=== PATIENT | male | born 1940 | race African-American/Black ===

== ENCOUNTER 2017-12-28 04:56 | Outpatient (CLI) | payer MEDICARE, BC | END 2017-12-28 04:57 | disposition critical access hospital (66) | LOC: EMS 04:56 | PROVIDERS: ATTEND Surgery | DX: R07.9 Chest pain, unspecified (principal) | CPT/HCPCS: A0425; A0427 ==

== ENCOUNTER 2017-12-28 05:11 | Emergency (ER) | payer MEDICARE, BC ==
[2017-12-28 05:43] LABS: BASOPHILS % (AUTO) 1.2 %; EOSINOPHILS # (AUTO) 0.5 10^3/uL (0.0-0.7); EOSINOPHILS % (AUTO) 11.8 %; HGB - HEMOGLOBIN 14.9 g/dL (14.0-18.0); LYMPHOCYTES # (AUTO) 1.1 10^3/uL (1.5-3.5); LYMPHOCYTES % (AUTO) 26.7 %; MEAN CORPUSCULAR HEMOGLOBIN 30.7 pg (27.0-31.0); MEAN CORPUSCULAR HGB CONC 32.2 g/dL (32.0-36.0); MEAN CORPUSCULAR VOLUME 95.2 fL (80.0-94.0); MEAN PLATELET VOLUME 9.1 fL (7.4-11.4); MONOCYTES # (AUTO) 0.5 10^3/uL (0.0-1.0); NEUTROPHILS # (AUTO) 2.1 10^3/uL (1.5-6.6); NEUTROPHILS % (AUTO) 49.3 %; PLT - PLATELET COUNT 142 10^3/uL (130-450); RED BLOOD COUNT 4.84 10^6/uL (4.70-6.10); RED CELL DISTRIBUTION WIDTH 13.5 % (12.0-15.0); WHITE BLOOD COUNT 4.3 x10^3/uL (4.8-10.8)
[2017-12-28 05:54] LABS: ALBUMIN/GLOBULIN RATIO 1.3 (1.0-2.2); BILIRUBIN,TOTAL 0.5 mg/dL (0.2-1.0); CALCIUM 8.4 mg/dL (8.5-10.3); CREATININE 0.9 mg/dL (0.6-1.2); TOTAL PROTEIN 7.1 g/dL (6.7-8.2)
--- NOTE | 2017-12-28 05:57 | ED Physician Documentation ---
PD HPI CHEST PAIN - Stated complaint Stated Complaint: CHEST PAIN - Chief complaint Chief Complaint: Cardiac - History obtained from History obtained from: Patient - History of Present Illness Timing - onset: Enter time (04:00) Timing - onset during: Rest Timing - details: Abrupt onset Quality: Pain Location: Substernal, Left shoulder/arm, Upper back Improved by: Nothing Worsened by: Other (no exacerbating factors) Associated symptoms: No: Shortness of air, Diaphoresis, Nausea, Vomiting Similar symptoms before: Has not had sx before Recently seen: Not recently seen - Additional information Additional information: c/o midline chest pain radiating to back and left shoulder, onset while lying in bed at rest at [address] 1-2 months ago which was suggestive of previous heart attack but no acutely concerning findings. CP resolved prior to my evaluation Review of Systems Constitutional: denies: Fever, Chills, Sweats Cardiac: reports: Chest pain / pressure. denies: Palpitations, Pedal edema, Calf pain Respiratory: reports: Reviewed and negative GI: reports: Reviewed and negative Musculoskeletal: denies: Extremity swelling PD PAST MEDICAL HISTORY - Past Medical History Past Medical History: Yes Cardiovascular: Hypertension Respiratory: None Endocrine/Autoimmune: None, Type 2 diabetes GI: None : None HEENT: None Psych: None Musculoskeletal: Osteoarthritis Derm: None - Past Surgical History Past Surgical History: Yes Ortho: Arthroscopic surgery - Present Medications Home Medications: Ambulatory Orders Medication Instructions Recorded Confirmed Albuterol [Albuterol] 12/28/17 Losartan Potassium [Losartan 12/28/17 Potassium] Metoprolol Succinate [Toprol Xl] 1 tab PO DAILY 12/28/17 12/28/17 Tiotropium [place] [Spiriva] 12/28/17 - Allergies Allergies/Adverse Reactions: Allergies Allergy/AdvReac Type Severity Reaction Status Date / Time No Known Drug Allergies Allergy Verified 12/28/17 05:18 - Social History Does the pt smoke?: No Smoking Status: Never smoker Does the pt drink ETOH?: No Does the pt have substance abuse?: No - Immunizations Immunizations are current?: No Immunizations: TDAP >10years/unknown - POLST Patient has POLST: Yes PD ED PE NORMAL - Vitals Vital signs reviewed: Yes - General General: Alert and oriented X 3, No acute distress, Well developed/nourished - HEENT HEENT: Moist mucous membranes - Neck Neck: Supple, no meningeal sign - Cardiac Cardiac: RRR, No murmur - Respiratory Respiratory: No respiratory distress, Clear bilaterally - Abdomen Abdomen: Soft, Non tender - Derm Derm: Normal color, Warm and dry - Extremities Extremities: No edema Results - Vitals Vitals: Oxygen O2 Source Room air - EKG (time done) No standard instances Rate: Rate (enter#) (64) Rhythm: NSR [place]: LAD, Anterior hemiblock Intervals: Normal [place] QRS: LVH Ischemia: Normal ST segments, Other (PVC) - Labs Labs: Laboratory Tests 12/28/17 12/28/17 12/28/17 05:34 05:34 05:34 WBC 4.3 L RBC 4.84 Hgb 14.9 Hct 46.1 MCV 95.2 H MCH 30.7 MCHC 32.2 RDW 13.5 Plt Count 142 MPV 9.1 Neut # 2.1 Lymph # 1.1 L [place] # 0.5 Eos # 0.5 Baso # 0.0 Absolute Nucleated RBC 0.01 Nucleated RBC % 0.1 Sodium 139 Potassium 3.6 Chloride 103 Carbon Dioxide 29 Anion Gap 7.0 BUN 21 H Creatinine 0.9 Estimated GFR (MDRD) 99 Glucose 124 H Calcium 8.4 L Total Bilirubin 0.5 AST 26 ALT 21 Alkaline Phosphatase 58 Troponin I < 0.04 Total Protein 7.1 Albumin 4.0 Globulin 3.1 Albumin/Globulin Ratio 1.3 Lipase 67 H Urine Color Urine Clarity Urine pH Ur Specific [place] Urine Protein Urine Glucose (UA) Urine Ketones Urine Occult Blood Urine Nitrite Urine Bilirubin Urine Urobilinogen Ur Leukocyte Esterase Ur Microscopic Review Urine Culture Comments 12/28/17 06:35 WBC RBC Hgb Hct MCV MCH MCHC RDW Plt Count MPV Neut # Lymph # Dent # Eos # Baso # Absolute Nucleated RBC Nucleated RBC % Sodium Potassium Chloride Carbon Dioxide Anion Gap BUN Creatinine Estimated GFR (MDRD) Glucose Calcium Total Bilirubin AST ALT Alkaline Phosphatase Troponin I Total Protein Albumin Globulin Albumin/Globulin Ratio Lipase Urine Color COLORLESS Urine Clarity CLEAR Urine pH 7.0 Ur Specific [place] <=1.005 Urine Protein NEGATIVE Urine Glucose (UA) NEGATIVE Urine Ketones NEGATIVE Urine Occult Blood NEGATIVE Urine Nitrite NEGATIVE Urine Bilirubin NEGATIVE Urine Urobilinogen 0.2 (NORMAL) Ur Leukocyte Esterase NEGATIVE Ur Microscopic Review NOT INDICATED Urine Culture Comments NOT INDICATED - Rads (name of study) chest xray Radiology: Prelim report reviewed, See rad report PD MEDICAL DECISION MAKING - ED course Complexity details: reviewed results, re-evaluated patient, considered differential, d/w patient Departure - Departure Disposition: 01 Home, Self Care Clinical Impression: Chest pain Condition: Good Instructions: ED Chest Pain Atypical Unkn Cause Follow-Up: Alyssa Garay MD [Primary Care Provider] - Discharge Date/Time: 12/28/17 08:46
--- NOTE | 2017-12-28 06:21 | XRAY Report ---
EXAM: CHEST RADIOGRAPHY EXAM DATE: 12/28/2017 06:01 AM. CLINICAL HISTORY: Chest pain. COMPARISON: 07/20/2012, 09/09/2010 TECHNIQUE: 2 views. FINDINGS: Lungs/Pleura: No focal opacities evident. No pleural effusion. No pneumothorax. Normal volumes. Mediastinum: Heart and mediastinal contours are unremarkable. Other: Bilateral hemidiaphragm eventration is noted. IMPRESSION: Stable appearance of the chest without acute cardiopulmonary abnormality. [facility] Referring Provider Line: [phone] SITE ID: [id number]
--- NOTE | 2017-12-28 06:21 | XRAY Preliminary Report ---
Exam: XR CHEST 2 VIEW X-RAY IMPRESSION: Stable appearance of the chest without acute cardiopulmonary abnormality. [facility] SITE ID: [id number]
[2017-12-28 06:44] LABS: BILIRUBIN,URINE NEGATIVE (NEGATIVE); GLUCOSE, URINE (UA) NEGATIVE (NEGATIVE); KETONES,URINE (UA) NEGATIVE (NEGATIVE); LEUKOCYTE ESTERASE, URINE NEGATIVE (NEGATIVE); NITRITE,URINE NEGATIVE (NEGATIVE); OCCULT BLOOD,URINE NEGATIVE (NEGATIVE); PROTEIN,URINE NEGATIVE (NEGATIVE); UROBILINOGEN,URINE 0.2 (NORMAL) E.U./dL (NORMAL)
[2017-12-28 06:53] LABS: CLARITY,URINE CLEAR (CLEAR)
[2017-12-28 08:46] VITALS: BP 167/81
== END 2017-12-28 08:46 | disposition home or self-care (01) ==
LOC: EDUNIT# → ED 05:11 → SUPCPDRO 05:11 → ED 08:46
DX: R07.9 Chest pain, unspecified (principal); E11.9 Type 2 diabetes mellitus without complications; I10 Essential (primary) hypertension
CPT/HCPCS: 36415; 71046; 80053; 81001; 81003; 83690; 84484; 85025; 87086; 93005; 99283; 99284

== ENCOUNTER 2018-04-19 03:21 | Observation (INO) | payer MEDICARE, BC ==
--- NOTE | 2018-04-19 03:41 | ED Physician Documentation ---
PD HPI CHEST PAIN - Stated complaint Stated Complaint: CHEST PRESSURE - Chief complaint Chief Complaint: Cardiac - History obtained from History obtained from: Patient - History of Present Illness Timing - onset during: Rest Timing - details: Gradual onset, Still present Quality: Pressure, Aching Location: Substernal, Left chest Radiation: Back Similar symptoms before: Work up / diagnostics Recently seen: Not recently seen - Additional information Additional information: Patient is a 77 year old male who is presenting to the emergency department for chest pain. patient states that he was sleeping and he woke up. He noticed a pain that started at the back of his chest and radiated to the front of his chest. patient took his blood pressure and it was elevated. patient waited to see if it would improve but it did not so he called ems. when he was evaluated he had no acute distress but he wanted to be seen so he came in pov. Review of Systems Ten Systems: 10 systems reviewed and negative Constitutional: denies: Fever, Chills PD PAST MEDICAL HISTORY - Past Medical History Cardiovascular: Hypertension Respiratory: None Endocrine/Autoimmune: None, Type 2 diabetes GI: None : None HEENT: None Psych: None Musculoskeletal: Osteoarthritis Derm: None - Past Surgical History Past Surgical History: Yes Ortho: Arthroscopic surgery - Present Medications Home Medications: Ambulatory Orders Medication Instructions Recorded Confirmed Albuterol 12/28/17 Losartan Potassium 12/28/17 Metoprolol Succinate [Toprol Xl] 1 tab PO DAILY 12/28/17 12/28/17 Tiotropium [place] [Spiriva] 12/28/17 - Allergies Allergies/Adverse Reactions: Allergies Allergy/AdvReac Type Severity Reaction Status Date / Time No Known Drug Allergies Allergy Verified 04/19/18 03:35 - Social History Does the pt smoke?: No Smoking Status: Never smoker Does the pt drink ETOH?: No Does the pt have substance abuse?: No - Immunizations Immunizations are current?: No Immunizations: TDAP >10years/unknown - POLST Patient has POLST: Yes PD ED PE NORMAL - Vitals Vital signs reviewed: Yes - General General: Alert and oriented X 3, No acute distress - HEENT HEENT: Atraumatic, PERRL - Neck Neck: Supple, no meningeal sign, No JVD - Cardiac Cardiac: No murmur - Respiratory Respiratory: No respiratory distress - Abdomen Abdomen: Soft - Derm Derm: Normal color, Warm and dry, No rash - Extremities Extremities: No deformity - Neuro Neuro: Alert and oriented X 3, No motor deficit, Normal speech Eye Opening: Spontaneous Results - Vitals Vitals: Vital Signs - 24 hr 04/19/18 04/19/18 04/19/18 03:24 03:55 04:33 Temperature 36.6 C Heart Rate 59 L 58 L 45 L Respiratory 16 16 18 Rate Blood Pressure 203/94 H 174/81 H 151/88 H O2 Saturation 97 98 97 Oxygen O2 Source Room air - EKG (time done) 0335 Rate: Rate (enter#) (50) Rhythm: Sinus bradycardia [place]: Normal, Anterior hemiblock QRS: LVH Compare to prior EKG: Unchanged from prior EKG 0526 Rate: Rate (enter#) (45) Rhythm: Sinus bradycardia QRS: LVH, Poor R wave progression Ischemia: T wave inversion Other comments: Other comments (new t wave inversions) Compare to prior EKG: Changed from prior EKG 0538 Rate: Rate (enter#) (45) Rhythm: Sinus bradycardia Compare to prior EKG: Unchanged from prior EKG - Labs Labs: Laboratory Tests 04/19/18 04/19/18 04/19/18 03:39 03:39 03:39 WBC 3.3 L RBC 4.84 Hgb 15.6 Hct 46.1 MCV 95.2 H MCH 32.3 H MCHC 33.9 RDW 12.8 Plt Count 120 L MPV 9.6 Neut # (Auto) 1.5 Lymph # (Auto) 0.[address] [place] # (Auto) 0.3 Eos # (Auto) 0.6 Baso # (Auto) 0.1 Absolute Nucleated RBC 0.00 Nucleated RBC % 0.1 Sodium 138 Potassium 3.4 L Chloride 100 L Carbon Dioxide 29 Anion Gap 9.0 BUN 13 Creatinine 1.0 Estimated GFR (MDRD) 88 L Glucose 117 H Calcium 8.9 Total Bilirubin 0.7 AST 26 ALT 19 Alkaline Phosphatase 55 Troponin I < 0.04 Total Protein 7.6 Albumin 4.1 Globulin 3.5 Albumin/Globulin Ratio 1.2 Lipase 77 H 04/19/18 05:15 WBC RBC Hgb Hct MCV MCH MCHC RDW Plt Count MPV Neut # (Auto) Lymph # (Auto) [place] # (Auto) Eos # (Auto) Baso # (Auto) Absolute Nucleated RBC Nucleated RBC % Sodium Potassium Chloride Carbon Dioxide Anion Gap BUN Creatinine Estimated GFR (MDRD) Glucose Calcium Total Bilirubin AST ALT Alkaline Phosphatase Troponin I < 0.04 Total Protein Albumin Globulin Albumin/Globulin Ratio Lipase - Rads (name of study) chest x-ray Radiology: Final report received (no acute abdnormalities) PD MEDICAL DECISION MAKING - ED course Complexity details: reviewed old records, reviewed results, re-evaluated patient, considered differential, d/w patient ED course: Patient was seen and examined at bedside. ekg was performed and showed no acute abnormalities. IV access was gained and labs were drawn. patient was treated with aspirin 325mg. chest x-ray was performed and was within normal limits. patient was virtually chest pain free. At two hours repeat trop and ekg were performed and the ekg now had new t wave inversions. the leads had never been taken off the patient. an immediate repeat was performed and it was indeed changed. case was discussed with the hospitalist and patient was placed in observation for further care. - Sepsis Event Vital Signs: Vital Signs - 24 hr 04/19/18 04/19/18 04/19/18 03:24 03:55 04:33 Temperature 36.6 C Heart Rate 59 L 58 L 45 L Respiratory 16 16 18 Rate Blood Pressure 203/94 H 174/81 H 151/88 H O2 Saturation 97 98 97 Oxygen O2 Source Room air Departure - Departure Disposition: ED Place in Observation Clinical Impression: Chest pain, Acute electrocardiogram changes Condition: Stable
[2018-04-19] MEDS ORDERED: ASPIRIN CHEW 81 MG TABLET PO STA (03:42)
[2018-04-19 03:51] LABS: BASOPHILS # (AUTO) 0.1 10^3/uL (0.0-0.1); BASOPHILS % (AUTO) 2.9 %; EOSINOPHILS # (AUTO) 0.6 10^3/uL (0.0-0.7); EOSINOPHILS % (AUTO) 18.6 %; HGB - HEMOGLOBIN 15.6 g/dL (14.0-18.0); LYMPHOCYTES # (AUTO) 0.8 10^3/uL (1.5-3.5); LYMPHOCYTES % (AUTO) 25.2 %; MEAN CORPUSCULAR HEMOGLOBIN 32.3 pg (27.0-31.0); MEAN CORPUSCULAR HGB CONC 33.9 g/dL (32.0-36.0); MEAN CORPUSCULAR VOLUME 95.2 fL (80.0-94.0); MEAN PLATELET VOLUME 9.6 fL (7.4-11.4); MONOCYTES # (AUTO) 0.3 10^3/uL (0.0-1.0); MONOCYTES % (AUTO) 8.7 %; NEUTROPHILS # (AUTO) 1.5 10^3/uL (1.5-6.6); NEUTROPHILS % (AUTO) 44.6 %; PLT - PLATELET COUNT 120 10^3/uL (130-450); RED BLOOD COUNT 4.84 10^6/uL (4.70-6.10); RED CELL DISTRIBUTION WIDTH 12.8 % (12.0-15.0); WHITE BLOOD COUNT 3.3 x10^3/uL (4.8-10.8)
--- NOTE | 2018-04-19 04:02 | XRAY Report ---
Reason: chest pain Procedure Date: 04/19/2018 Accession Number: [id number] / [id number] Procedure: XR - Chest 1 View X-Ray CPT Code: 44749 FULL RESULT: EXAM: CHEST RADIOGRAPHY EXAM DATE: 04/19/2018 03:54 AM. CLINICAL HISTORY: Chest pain. COMPARISON: CHEST 2 VIEW 12/28/2017. TECHNIQUE: 1 view. FINDINGS: Lungs/Pleura: No alveolar consolidation or pleural effusion seen. No pneumothorax. Mediastinum: Within exam limitations, the cardiomediastinal contour is normal. Other: Degenerative joint disease in the shoulders. IMPRESSION: 1. No acute abnormality seen in the chest. [facility]
[2018-04-19 04:04] LABS: ALBUMIN 4.1 g/dL (3.2-5.5); ALBUMIN/GLOBULIN RATIO 1.2 (1.0-2.2); BILIRUBIN,TOTAL 0.7 mg/dL (0.2-1.0); CALCIUM 8.9 mg/dL (8.5-10.3); TOTAL PROTEIN 7.6 g/dL (6.7-8.2)
[2018-04-19] MEDS ORDERED: PROCHLORPERAZINE 10 MG/2 ML VIAL IVP PRN (06:06)
[2018-04-19] MEDS ORDERED: ONDANSETRON 4 MG/2 ML VIAL IVP PRN (06:06)
[2018-04-19] MEDS ORDERED: PROMETHAZINE 25 MG/1 ML VIAL IM PRN (06:06)
[2018-04-19] MEDS ORDERED: oxyCODONE 5 MG TABLET PO PRN ×2 (06:06)
[2018-04-19] MEDS ORDERED: NITROGLYCERIN SL 0.4 MG TABLET SL PRN (06:06)
[2018-04-19] MEDS ORDERED: MORPHINE 2 MG/ML CARPUJECT IVP PRN ×2 (06:06)
[2018-04-19] MEDS ORDERED: ACETAMINOPHEN 325 MG TABLET PO PRN (06:06)
[2018-04-19] MEDS ORDERED: SODIUM CHLORIDE FLUSH 0.9% 10 ML SYRINGE IVP PRN (06:06)
--- NOTE | 2018-04-19 06:12 | HISTORY & PHYSICAL EXAMINATION ---
Chief Complaint - Chief Complaint Chief Complaint: Chest pain History of Present Illness - Admitted From Admitted From:: Emergency Department - History Obtained From Records Reviewed: Yes History obtained from: Patient Exam Limitations: None - History of Present Illness HPI Comment/Other: Patient is a 77-year-old -[place] gentleman with a past medical history significant for hypertension, COPD, hyperlipidemia and coronary artery disease who presents to the emergency department with a chief complaint of chest pain. The patient states that last night he went to bed and was in his normal state of health. He states that he woke up early this morning and felt as though he had to go to the bathroom so he sat up at the edge of his bed. He states when he sat up at the edge of the bed he felt some pain in his back that radiated to the front of his chest and was in the substernal area. He states it felt almost like gas and passed through him. He states that the pain lasted anywhere from 45 seconds to 1 minute and 15 seconds. He did not experience any shortness of air, palpitations, orthopnea, nausea or diaphoresis with the pain. He denies any radiation of the pain to his jaw or left arm. He states he did check his pulse and pulse ox as soon is he began having the pain and states that he had a low heart rate but was saturating well. The patient also checked his blood pressure which was elevated at 204/97. He states that he was concerned with his blood pressure being elevated and him having had this episode of chest pain therefore he came to the emergency department. The patient does state that he had a similar episode of chest pain about 6 months ago for which he was placed in observation and did undergo a stress test which was negative. He was however told that he had had a heart attack in the past according to the stress test. The patient has never had an angiogram he has never had any stents or any bypass surgery. Patient denies any headache, blurred vision, runny nose, sore throat, nasal congestion, difficulty swallowing, fevers, chills, cough, abdominal pain, vomiting, diarrhea, constipation, urinary urgency, urinary frequency, dysuria, polyuria, polydipsia, joint pain, muscle aches, back pain, neck stiffness, recent unintentional weight loss, changes in appetite, rashes, hair loss, night sweats or any focal neurologic deficits. On presentation to the emergency department the patient was afebrile, he was hypertensive with a blood pressure of 203/94 and bradycardic with a heart rate of 59. The patient's initial EKG showed sinus bradycardia with no significant changes from his previous EKG. The patient was found to have left ventricular hypertrophy. The patient's lab work showed a negative troponin and a mild hypokalemia and mild leukopenia and thrombocytopenia. The patient had no further episodes of chest pain while he was in the emergency department. The emergency room physician did order a repeat EKG and troponin after 2 hours. The patient's repeat troponin was negative however his EKG showed new T-wave inversions in leads V4, V5, V6 and lead III. The patient also had persistent bradycardia on the gambling monitor. The patient however did not have any further symptoms of chest pain. The patient did undergo a chest x-ray which showed no acute disease. Given the patient's EKG changes he was placed in observation for further evaluation and monitoring. History - Past Medical History Cardiovascular: reports: Hypertension, High cholesterol, Coronary artery disease Respiratory: reports: COPD Endocrine/Autoimmune: reports: Type 2 diabetes (Diet controlled) GI: reports: None : reports: None HEENT: reports: None Psych: reports: None Musculoskeletal: reports: Osteoarthritis Derm: reports: None MRSA Hx?: No - Past Surgical History Ortho: reports: Arthroscopic surgery - Family & Social History Family History: Mother: , CVA/TIA, Diabetes, Type 2, Hyperlipidemia, Hypertension, Father: , Sister: , Diabetes, Type 2, Hyperlipidemia, Hypertension Living arrangement: At home Living Situation: With spouse/s.o. Social History Notes: The patient lives in [place] with his . 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 He is now retired. He was born in [place] and has 3 children who are all grown. He states he did formerly smoke less than half a pack a day for about 10 years he also used to drink alcohol but has not drank alcohol in many years. He denies any illicit drug use. - POLST Patient has POLST: Yes POLST Status: Full Code Meds/Allgy - Home Medications Home Medications: Ambulatory Orders Medication Instructions Recorded Confirmed Albuterol 12/28/17 Losartan Potassium 12/28/17 Metoprolol Succinate [Toprol Xl] 1 tab PO DAILY 12/28/17 12/28/17 Tiotropium Gilbert [Spiriva] 12/28/17 - Allergies Allergies/Adverse Reactions: Allergies Allergy/AdvReac Type Severity Reaction Status Date / Time No Known Drug Allergies Allergy Verified 04/19/18 03:35 Review of Systems - Other Findings Other Findings: A comprehensive review of systems was performed the pertinent positives and negatives are stated above in the HPI and the remainder of the review of systems is negative. Exam - Vital Signs Reviewed Vital Signs: Yes Vital Signs: Vital Signs x48h Temp Pulse Resp BP Pulse Ox 04/19/18 06:07 48 L 16 159/86 H 97 04/19/18 05:00 52 L 16 150/82 H 98 04/19/18 04:33 45 L 18 151/88 H 97 04/19/18 03:55 58 L 16 174/81 H 98 04/19/18 03:24 36.6 C 59 L 16 203/94 H 97 - Physical Exam General Appearance: positive: No acute distress, Alert Eyes Bilateral: positive: Normal inspection, PERRL, EOMI, No lid inflammation, Conjunctivae nml, No scleral icterus ENT: positive: ENT inspection nml, Pharynx nml, No signs of dehydration. negative: Purulent nasal drainage, Pharyngeal erythema, Oral lesions Neck: positive: Nml inspection, Thyroid nml, No JVD, Trachea midline. negative: Lymphadenopathy (R), Lymphadenopathy (L), Stiff neck, Carotid bruit, Tracheal deviation Respiratory: positive: Chest non-tender, No respiratory distress, Breath sounds nml. negative: Wheezes, Rales, Rhonchi Cardiovascular: positive: No murmur, No gallop, Bradycardia Peripheral Pulses: positive: 2+ Abdomen: positive: Non-tender, No organomegaly, Nml bowel sounds, No distention. negative: Guarding, Rebound, Hepatomegaly Back: positive: Nml inspection. negative: CVA tenderness (R), CVA tenderness (L) Skin: positive: Color nml, No rash, Warm, Dry. negative: Cyanosis, Diaphoresis, Pallor Extremities: positive: Non-tender, Full ROM, Nml appearance, No pedal edema Neurologic/Psychiatric: positive: Oriented x3, CN's nml (2-12), Motor nml, Sensation nml, Mood/affect nml Conclusion/Plan - Problem List (1) Chest pain Conclusion/Plan: Patient presented with chest pain that woke him from sleep. Patient stated the chest pain was initially in his back and radiated to the front of his chest and was located substernal. The chest pain resolved before patient arrived in the emergency department. The patient had no further chest pain. The patient's initial troponin was negative and EKG was unchanged from previous EKG. Repeat troponin was negative after 2 hours however repeat EKG showed new T-wave inversions in leads III, V4, V5 and V6. Given patient's age, history of hypertension, hyperlipidemia, diabetes and coronary artery disease patient was placed in observation for further monitoring. Plan: Serial troponins x3 Telemetry monitoring Nitroglycerin when necessary for chest pain Aspirin Lipitor Echo Qualifiers: Chest pain type: unspecified Qualified Code(s): R07.9 - Chest pain, unspecified (2) Hypertension Conclusion/Plan: Patient has history of hypertension and was very hypertensive on presentation to the emergency department with a blood pressure of 203/94. The patient also sta paulette he was hypertensive at home. Hypertension may have been causing the patient's chest discomfort. Patient's blood pressure did improve over time in the emergency department without any intervention. Plan: We will hold the patient's metoprolol given his bradycardia in the emergency department. We will continue the patient's losartan and monitor blood pressure. We will titrate medications as needed. Qualifiers: Hypertension type: essential hypertension Qualified Code(s): I10 - Essential (primary) hypertension (3) Bradycardia Conclusion/Plan: The patient was bradycardic in the emergency department. The patient's EKG showed sinus bradycardia. Patient's heart rate was anywhere between 59 and 45 on the monitor. The patient is on metoprolol at home and his bradycardia may be explained by the metoprolol. For now the patient will be given IV fluids and we will hold the metoprolol while the patient is hospitalized. We will continue to monitor the patient's heart rate on telemetry. The patient is asymptomatic with the bradycardia. The patient's chest pain is very unlikely to be related to the bradycardia. (4) Hypokalemia Conclusion/Plan: The patient is mildly hypokalemic on presentation. This is unusual given that the patient is on losartan and not on any Lasix. The patient also did not have any vomiting or diarrhea. We will replace the patient's potassium while the patient is hospitalized and give him IV fluids. (5) Hyperlipidemia Conclusion/Plan: Patient is a history of hyperlipidemia and uses a statin at home. The patient will be continued on his home dose of statin while he is hospitalized. We will also check a lipid profile this morning. (6) COPD (chronic obstructive pulmonary disease) Conclusion/Plan: The patient does have a history of COPD but is not wheezing on examination and does not appear to be an a COPD exacerbation. The patient is on albuterol and Symbicort at home along with Spiriva. The patient will be placed on albuterol nebs as needed while he is hospitalized. Qualifiers: Emphysema type: unspecified - Lab Results Lab results reviewed: Yes Fish Bones: 04/19/18 03:39 04/19/18 03:39 Other Lab Results: Laboratory Results WBC 3.3 x10^3/uL (4.8-10.8) L 04/19/18 03:39 RBC 4.84 10^6/uL (4.70-6.10) 04/19/18 03:39 Hgb 15.6 g/dL (14.0-18.0) 04/19/18 03:39 Hct 46.1 % (42.0-52.0) 04/19/18 03:39 MCV 95.2 fL (80.0-94.0) H 04/19/18 03:39 MCH 32.3 pg (27.0-31.0) H 04/19/18 03:39 MCHC 33.9 g/dL (32.0-36.0) 04/19/18 03:39 RDW 12.8 % (12.0-15.0) 04/19/18 03:39 Plt Count 120 10^3/uL (130-450) L 04/19/18 03:39 MPV 9.6 fL (7.4-11.4) 04/19/18 03:39 Neut # (Auto) 1.5 10^3/uL (1.5-6.6) 04/19/18 03:39 Lymph # (Auto) 0.8 10^3/uL (1.5-3.5) L 04/19/18 03:39 Sutter # (Auto) 0.3 10^3/uL (0.0-1.0) 04/19/18 03:39 Eos # (Auto) 0.6 10^3/uL (0.0-0.7) 04/19/18 03:39 Baso # (Auto) 0.1 10^3/uL (0.0-0.1) 04/19/18 03:39 Absolute Nucleated RBC 0.00 x10^3/uL 04/19/18 03:39 Nucleated RBC % 0.1 /100WBC 04/19/18 03:39 Sodium 138 mmol/L (135-145) 04/19/18 03:39 Potassium 3.4 mmol/L (3.5-5.0) L 04/19/18 03:39 Chloride 100 mmol/L (101-111) L 04/19/18 03:39 Carbon Dioxide 29 mmol/L (21-32) 04/19/18 03:39 Anion Gap 9.0 (6-13) 04/19/18 03:39 BUN 13 mg/dL (6-20) 04/19/18 03:39 Creatinine 1.0 mg/dL (0.6-1.2) 04/19/18 03:39 Estimated GFR (MDRD) 88 (>89) L 04/19/18 03:39 Glucose 117 mg/dL (70-100) H 04/19/18 03:39 Calcium 8.9 mg/dL (8.5-10.3) 04/19/18 03:39 Total Bilirubin 0.7 mg/dL (0.2-1.0) 04/19/18 03:39 AST 26 IU/L (10-42) 04/19/18 03:39 ALT 19 IU/L (10-60) 04/19/18 03:39 Alkaline Phosphatase 55 IU/L (42-121) 04/19/18 03:39 Troponin I < 0.04 ng/mL (<0.49) 04/19/18 05:15 Total Protein 7.6 g/dL (6.7-8.2) 04/19/18 03:39 Albumin 4.1 g/dL (3.2-5.5) 04/19/18 03:39 Globulin 3.5 g/dL (2.1-4.2) 04/19/18 03:39 Albumin/Globulin Ratio 1.2 (1.0-2.2) 04/19/18 03:39 Lipase 77 U/L (22-51) H 04/19/18 03:39 - Diagnostic Imaging Results Diagnostic Imaging Results: positive: Final report reviewed Diagnostic Imaging Results Comments: Chest x-ray Impression: 1. No acute abnormality seen in the chest. - EKG Results EKG Interpreted Independently: Yes EKG Comparison: Changed from prior EKG EKG Findings: Patient's initial EKG was similar to EKG from the past but repeat EKG showed new T-wave inversions in leads V4, V5, V6 and lead III. Core Measures - Anticipated LOS I expect patient to be DC'd or transferred within 96 hours.: Yes - DVT/VTE - Prophylaxis VTE/DVT Prophylaxis med ordered at admit?: Yes
[2018-04-19 06:41] LABS: CHOL/HDL RATIO 1.8 (<5.0); CHOLESTEROL 140 mg/dL; HDL CHOLESTEROL 78 mg/dL
[2018-04-19] MEDS ORDERED: NS W/20 MEQ KCL 1,000 ML IV SCH (07:00)
[2018-04-19 07:07] LABS: LDL CHOLESTEROL,DIRECT 52 mg/dL; LDLD/HDL RATIO 0.7 (<3.6)
[2018-04-19] MEDS: SODIUM CHLORIDE FLUSH 0.9% 10 ML SYRINGE IVP SCH ×3 (07:20→22:33)
[2018-04-19] MEDS: FAMOTIDINE 20 MG TABLET PO SCH (09:20)
[2018-04-19] MEDS: ENOXAPARIN 40 MG/0.4 ML SYRINGE SUBQ SCH (09:21)
[2018-04-19] MEDS: ASPIRIN EC 81 MG TABLET PO SCH (09:21)
[2018-04-19] MEDS: LOSARTAN 50 MG TABLET PO SCH (09:23)
[2018-04-19] MEDS: ALBUTEROL NEB 2.5 MG/3 ML INH PRN (10:10)
[2018-04-19] MEDS ORDERED: ALBUTEROL NEB 2.5 MG/3 ML INH PRN (10:36)
[2018-04-19] MEDS ORDERED: NON FORMULARY MED (Albuterol Sulfate [Proair Hfa Inhaler] 2 PUFFS) INH PRN (10:36)
[2018-04-19] MEDS ORDERED: POTASSIUM CHLORIDE 20 MEQ TABLET PO SCH (10:39)
[2018-04-19 10:58] LABS: AMYLASE 95 U/L (28-100); LIPASE 38 U/L (22-51)
[2018-04-19] MEDS: POLYETHYLENE GLYCOL 3350 17 GM PACKET PO SCH (11:22)
[2018-04-19] MEDS: BUDESONIDE 0.5 MG/2 ML NEB INH SCH (20:18)
[2018-04-19] MEDS: FORMOTEROL FUMARATE NEB 20 MCG/2 ML INH SCH (20:19)
[2018-04-19] MEDS ORDERED: ATORVASTATIN 40 MG TABLET PO SCH (21:00)
[2018-04-19] MEDS ORDERED: ATORVASTATIN 10 MG TABLET PO SCH (21:00)
[2018-04-20] MEDS: BUDESONIDE 0.5 MG/2 ML NEB INH SCH (07:21)
[2018-04-20] MEDS: ALBUTEROL NEB 2.5 MG/3 ML INH PRN (07:21)
[2018-04-20] MEDS: FORMOTEROL FUMARATE NEB 20 MCG/2 ML INH SCH (07:21)
[2018-04-20] MEDS: LOSARTAN 50 MG TABLET PO SCH (08:15)
[2018-04-20] MEDS: ASPIRIN EC 81 MG TABLET PO SCH (08:15)
[2018-04-20] MEDS: FAMOTIDINE 20 MG TABLET PO SCH (08:15)
[2018-04-20] MEDS: SODIUM CHLORIDE FLUSH 0.9% 10 ML SYRINGE IVP SCH ×2 (08:15)
[2018-04-20] MEDS: POLYETHYLENE GLYCOL 3350 17 GM PACKET PO SCH (08:16)
[2018-04-20] MEDS: ENOXAPARIN 40 MG/0.4 ML SYRINGE SUBQ SCH (08:16)
[2018-04-20] MEDS ORDERED: LOSARTAN 50 MG TABLET PO SCH (10:27)
[2018-04-20] MEDS ORDERED: METOPROLOL SUCCINATE 25 MG TABLET PO SCH (13:00)
--- NOTE | 2018-04-20 13:52 | Nuclear Medicine Report ---
Reason: Chst pain, Abn EKG Procedure Date: 04/20/2018 Accession Number: [id number] / [id number] Procedure: NM - Myocardial Perfusion STR/RST CPT Code: FULL RESULT: EXAM: SINGLE-ISOTOPE EXERCISE STRESS TEST. SINGLE-ISOTOPE AND ONE-DAY REST/STRESS MYOCARDIAL PERFUSION SCANS WITH TOMOGRAPHIC IMAGING, QUANTITATIVE ANALYSIS, WALL MOTION ANALYSIS AND CALCULATION OF EJECTION FRACTION. EXAM DATE: 04/20/2018 01:09 PM. CLINICAL HISTORY: Chest pain, abnormal EKG COMPARISON: 03/02/2013. TECHNIQUE: A rest myocardial perfusion scan was done with tomography after the intravenous administration of 10 mCi Tc-99m sestamibi. After an appropriate delay, a treadmill exercise stress was performed according to department protocol. The patient exercised for 9 minutes and 31 seconds. The maximum heart rate was 124 bpm, which was 86% of the maximum predicted heart rate of 144 bpm. At approximately peak heart rate, 39 mCi of Tc-99m sestamibi was injected for stress myocardial perfusion scan. Motion correction was applied when appropriate. Gated tomographic images were obtained for wall motion analysis and computation of left ventricular ejection fraction. EKG findings reported separately. FINDINGS: There is a moderate severity fixed defect in the inferior and inferolateral singer. On the rest images, there is some liver activity adjacent to the inferior wall which artifactually increases the apparent activity at the inferolateral base. No definite reversible perfusion abnormalities. Computer analysis: Summed stress score 7 Summed rest score 6 Summed difference score 1 Wall motion analysis demonstrates mild inferoseptal hypokinesis. The left ventricular end-diastolic volume is 141 cc. The left ventricular end-systolic volume is 77 cc. The left ventricular ejection fraction is calculated to be 46%. IMPRESSION: 1. Moderate severity fixed inferior and inferolateral wall perfusion defect. No definite significant reversible component. 2. Abnormal left ventricular ejection fraction of 46%. Previous measurement of 57%. 3. Mild inferoseptal hypokinesis. 4. Normal left ventricular cavity size, no change with stress. 5. According to computer analysis, mildly abnormal study with no ischemia. RADIA The above findings were discussed with Dr. Yvette Chanel by Dr. Fracisco Velasquez at 13:50 hrs on 04/20/18.
--- NOTE | 2018-04-20 19:16 | Discharge Plan ---
Discharge Plan Disposition: 01 Home, Self Care Condition: Fair Prescriptions: Amlodipine Besylate [Norvasc] 2.5 mg PO DAILY #30 tablet Diet: Low Sodium Activity Restrictions: Activity as Tolerated Shower Restrictions: No Driving Restrictions: No Instruction Topics: Cardiomyopathy Meds, Risk Factors High Blood Pressure, CAD Additional Instructions or Follow Up instructions: Resume all your pre-hospital medications. Start taking the blood pressure medication (Amlodipine) once a day, preferably in the morning. Remember to eat a low salt diet. See your PCP and/or Node Js Developer for further blood pressure management and follow-up of the abnormal stress test. If you feel new or worsening symptoms, return to the ER. No Smoking: If you smoke, Please STOP! Call for help. Follow-up with: Alyssa Garay MD [Primary Care Provider] -
[2018-04-20] MEDS ORDERED: amLODIPine 5 MG TABLET PO ONE (19:21)
[2018-04-20 19:46] VITALS: BP 168/91
--- NOTE | 2018-04-22 08:40 | CARDIAC PROCEDURE NOTE ---
DATE OF SERVICE: 04/20/2018 Physician: Yvette Chanel MD REASON FOR TEST: Chest pain. CORONARY RISK FACTORS 1. Hypertension (poorly controlled). 2. Hyperlipidemia, on medication. 3. Male gender. 4. Advanced age. After signing informed consent, patient performed an exercise treadmill myocardial perfusion stress test using a Guzman protocol. The patient exercised for 10 minutes and 31 seconds, achieved 10.16 METS. Resting heart rate 53, peak heart rate 124 (86% predicted maximum heart rate for age). Resting blood pressure 178/78, peak blood pressure 205/100. The patient had mild shortness of breath at peak. The patient had "chest tightness" in stage III. At this point, EKG changes did develop. RESTING ELECTROCARDIOGRAM: Sinus bradycardia, LVH voltage; symmetrically inverted T waves in leads II, III, and aVF, and V4 through V6. During the complaint of chest tightness, his T-wave inversions all normalized. PEAK EKG: sinus rhythm, LVH voltage, and no ST depressions, new upright T waves in all previously inverted leads. IMPRESSION 1. Good exercise tolerance. 2. Poorly controlled hypertension. 3. Abnormal resting electrocardiogram. 4. Pseudonormalization of T waves with stress. This is significant and does suggest coronary ischemia. 5. Nuclear images reported separately. TD: 04/21/2018 20:02 MTDD
--- NOTE | 2018-04-27 07:58 | DISCHARGE SUMMARY ---
Physician: Yvette Chanel MD DATE OF ADMISSION: 04/19/2018 DATE OF DISCHARGE: 04/20/2018 HISTORY OF PRESENT ILLNESS: This is a 77-year-old black, male with a history of hypertension, COPD, hyperlipidemia, presumed coronary disease by virtue of an abnormal stress test sometime ago and EF of approximately 47%, according to the patient. The patient presented with an episode of chest pain that started in his midback and radiated to the front, as he was awakening. He took his blood pressure, and it was very elevated, systolic BP > 200, and therefore he presented to the emergency room. He was placed in Observation status for evaluation of chest pain. HOSPITAL COURSE AND DISCHARGE DIAGNOSES 1. Chest pain. The patient had no further episodes of chest pain. His lab values showed troponins done x4 that were all not detectable. The patient went on to have stress testing. The patient exercised for 10 minutes and 31 seconds on a Guzman protocol treadmill, achieved 10 METS, peak heart rate of 124, which was 86% predicted maximum heart rate for age. His blood pressure was poorly controlled, peak blood pressure was 205/100. The resting EKG showed sinus bradycardia with inverted T-waves in leads II, III, aVF, and V4 through V6. At peak, his EKG showed uprighting of T waves in all the previously inverted leads, consistent with an abnormal stress test. Nuclear imaging was done with this treadmill stress test, and this showed a fixed defect in the inferior and inferolateral singer, EF of 46%, and no definite reversible perfusion defect was seen. 2. Ischemic cardiomyopathy. The patient did not report that he had a prior stress test or the results with an EF of 47% from that stress test, until he was about to be discharged. A remote stress test done here, which was from many years ago, showed a normal EF of 57%. The patient needs Cardiology followup for management of his ischemic cardiomyopathy, aggressive risk factor management, and symptom management. 3. Hypertension. The patient had poorly controlled blood pressure and required adjustment of medications while here. His losartan was increased from 25 mg b.i.d. to 50 mg b.i.d. Because of his resting bradycardia, no medication changes could be done with his Toprol dose. ALLERGIES: NONE. MEDICATIONS AT DISCHARGE 1. Albuterol inhaler p.r.n. 2. ProAir inhaler p.r.n. 2. Lipitor 10 mg q. p.m. 3. Baclofen 20 mg t.i.d. 4. Symbicort 2 puffs b.i.d. 5. Ibuprofen 200 mg p.r.n. 6. Losartan increased from 25 mg b.i.d. to 50 mg b.i.d. 7. Toprol-XL 25 mg daily. 8. Spiriva 1 inhalation daily. 9. New Norvasc 2.5 mg daily. LABORATORIES AND IMAGING: Reviewed and summarized above. CONDITION AT DISCHARGE: Stable. PHYSICAL EXAMINATION: VITAL SIGNS: Blood pressure 151/77, pulse of 51, afebrile, room air saturation 97%. HEENT: Unremarkable. NECK: Without JVD or carotid bruits. CHEST: Clear. HEART: Sounds normal. No murmur. ABDOMEN: Soft. EXTREMITIES: Without edema. NEUROLOGIC: Intact. FOLLOWUP: With his PCP and Marketing Performance Analyst in the next 1-2 weeks. CODE STATUS: FULL CODE. Time required to complete this entire discharge dictation, medication orders, and review of plan with patient: 30 minutes. cc requested for a Dr. Barraza. cc: MD Dr. Madi Mar, cc request TD: 04/26/2018 16:13 MTDD
== END 2018-04-20 20:00 | disposition home or self-care (01) ==
LOC: ED 03:21 → MS2 06:06
PROVIDERS: ADMIT Internal Medicine; ATTEND Internal Medicine
DX: R07.9 Chest pain, unspecified (principal); I25.5 Ischemic cardiomyopathy; I10 Essential (primary) hypertension; E87.6 Hypokalemia; E78.5 Hyperlipidemia, unspecified; J44.9 Chronic obstructive pulmonary disease, unspecified; E11.9 Type 2 diabetes mellitus without complications; R00.1 Bradycardia, unspecified; Z87.891 Personal history of nicotine dependence; Z79.51 Long term (current) use of inhaled steroids
CPT/HCPCS: 36415; 71045; 78452; 80053; 80061; 82150; 83690; 83721; 84484; 85025; 93005; 93017; 93306; 94640; 96360; 96361; 96372; 99284; 99285; A9270; A9500; G0378; J1650; J7626

== ENCOUNTER 2019-01-21 08:00 | Outpatient (CLI) | payer MEDICARE, BC | END 2019-01-21 23:59 | disposition home or self-care (01) | LOC: LAB 08:00 | PROVIDERS: ATTEND Internal Medicine Cardiovascular Disease | DX: I10 Essential (primary) hypertension (principal); E78.5 Hyperlipidemia, unspecified | CPT/HCPCS: 36415; 82088; 84244 ==

== ENCOUNTER 2020-12-01 17:39 | Outpatient (CLI) | payer MEDICARE, BC | END 2020-12-01 23:59 | disposition left against medical advice (07) | LOC: EMS 17:39 | DX: R06.02 Shortness of breath (principal) ==

== ENCOUNTER 2020-12-02 09:49 | Outpatient (CLI) | payer MEDICARE, BC | END 2020-12-02 09:50 | disposition critical access hospital (66) | LOC: EMS 09:49 | DX: R06.00 Dyspnea, unspecified (principal); R06.2 Wheezing; J44.9 Chronic obstructive pulmonary disease, unspecified | CPT/HCPCS: A0425; A0429 ==

== ENCOUNTER 2020-12-02 10:00 | Emergency (ER) | payer MEDICARE, BC ==
[2020-12-02] MEDS ORDERED: DEXAMETHASONE 10 MG/ML VIAL IVP STA (10:26)
[2020-12-02] MEDS ORDERED: ALBUTEROL NEB 2.5 MG/3 ML INH STA (10:26)
[2020-12-02 10:37] LABS: BASOPHILS # (AUTO) 0.1 10^3/uL (0.0-0.1); BASOPHILS % (AUTO) 1.1 %; EOSINOPHILS # (AUTO) 0.6 10^3/uL (0.0-0.7); EOSINOPHILS % (AUTO) 13.2 %; HCT - HEMATOCRIT 46.9 % (42.0-52.0); HGB - HEMOGLOBIN 15.4 g/dL (14.0-18.0); LYMPHOCYTES # (AUTO) 1.1 10^3/uL (1.5-3.5); LYMPHOCYTES % (AUTO) 23.6 %; MEAN CORPUSCULAR HEMOGLOBIN 31.2 pg (27.0-31.0); MEAN CORPUSCULAR HGB CONC 32.8 g/dL (32.0-36.0); MEAN CORPUSCULAR VOLUME 95.1 fL (80.0-94.0); MEAN PLATELET VOLUME 10.9 fL (7.4-11.4); MONOCYTES # (AUTO) 0.5 10^3/uL (0.0-1.0); MONOCYTES % (AUTO) 10.4 %; NEUTROPHILS # (AUTO) 2.4 10^3/uL (1.5-6.6); NEUTROPHILS % (AUTO) 51.5 %; PLT - PLATELET COUNT 168 10^3/uL (130-450); RED BLOOD COUNT 4.93 10^6/uL (4.70-6.10); RED CELL DISTRIBUTION WIDTH 12.5 % (12.0-15.0); WHITE BLOOD COUNT 4.6 x10^3/uL (4.8-10.8)
--- OUTSIDE RECORDS SUMMARY | 2020-12-02 10:42 | EXTERNAL MEDICAL SUMMARY RPT | Continuity of Care Document ---
:1940 Demographics Phone Unavailable Preferred Language Unknown Marital Status Unknown Mu-Ism Affiliation Unknown Race Unknown Ethnic Group Unknown Author Organization [facility] Address [address] [phone] Phone Social History date description facility [phone]
[2020-12-02 10:50] LABS: BILIRUBIN,TOTAL 1.1 mg/dL (0.2-1.0); CALCIUM 8.9 mg/dL (8.5-10.3); CREATININE 0.9 mg/dL (0.6-1.2); POTASSIUM 3.8 mmol/L (3.5-5.0); TOTAL PROTEIN 7.9 g/dL (6.7-8.2)
--- NOTE | 2020-12-02 11:14 | XRAY Report ---
PROCEDURE: Chest 1 View X-Ray INDICATIONS: chest pain TECHNIQUE: One view of the chest was acquired. COMPARISON: 04/19/2018 FINDINGS: Surgical changes and devices: Overlying EKG wires. Lungs and pleura: Stable elevation of the left hemidiaphragm. There is no focal consolidation, pneumo thorax, or pleural effusion. Mediastinum: Mediastinal contours appear normal. Heart size is normal. Bones and chest wall: Right shoulder degenerative changes as well as mild degenerative changes of the spine. No acute osseous abnormality. IMPRESSION: No evidence of an acute cardiopulmonary abnormality. Reviewed by: Eddie French DO on 12/02/2020 10:13 AM KAR[facility] Approved by: Eddie French DO on 12/02/2020 10:13 AM KAR[facility] Station ID: [id number]
--- NOTE | 2020-12-02 11:23 | ED Physician Documentation ---
PD HPI DYSPNEA - Stated complaint Stated Complaint: DIFFICULTY BREATHING - Chief complaint Chief Complaint: Resp - History obtained from History obtained from: Patient - History of Present Illness Timing - onset: How many weeks ago (2) Timing - onset during: Light activity Timing - duration: Weeks (2) Timing - details: Gradual onset, Still present Inciting event(s): URI Improved by: Inhaler/neb, Rest Worsened by: Exertion, Coughing Associated symptoms: Cough, Wheezing. No: Chest pain / discomfort, Palpitations, Diaphoresis, Bilateral edema, Unilateral edema Similar symptoms before: Diagnosis (COPD) Recently seen: Not recently seen - Additional information Additional information: 80-year-old male with a history of COPD and CHF is coming to the emergency department today with acute shortness of breath. More evidentIndicates that over the past 2 months he has noted an increase in his exertional dyspnea. Over the past 2 weeks this has become. He does not have a cough associated with this but he does have some wheezing and he is not using an inhaler. He does have a nebulizer at home and he does not find that this is been helpful. He did find the nebulized treatment given in the ambulance today was very helpful. He denies any swelling to his ankles he denies orthopnea and he does not otherwise feel ill. He does have some muffled hearing. Review of Systems Constitutional: denies: Fever Eyes: denies: Decreased vision Ears: reports: Loss of hearing. denies: Ear pain, Drainage/discharge Nose: reports: Congestion Throat: denies: Sore throat Cardiac: denies: Chest pain / pressure, Palpitations Respiratory: reports: Dyspnea, Wheezing. denies: Cough GI: denies: Nausea, Vomiting, Diarrhea : denies: Dysuria, Frequency PD PAST MEDICAL HISTORY - Past Medical History Cardiovascular: Hypertension, High cholesterol, Coronary artery disease Respiratory: COPD Endocrine/Autoimmune: Type 2 diabetes GI: None : None HEENT: None Psych: None Musculoskeletal: Osteoarthritis Derm: None - Past Surgical History Past Surgical History: Yes Ortho: Arthroscopic surgery - Present Medications Home Medications: Ambulatory Orders Medication Instructions Recorded Confirmed Albuterol 2.5 mg INH Q6H PRN 12/28/17 04/20/18 Losartan Potassium 50 mg PO BID 12/28/17 04/20/18 Metoprolol Succinate [Toprol Xl] 25 mg PO DAILY 12/28/17 04/20/18 Albuterol Sulfate [Proair Hfa 2 puffs INH Q4H PRN 04/19/18 04/20/18 Inhaler] Atorvastatin Calcium 10 mg PO QPM 04/19/18 04/20/18 Budesonide/Formoterol Fumarate 2 puffs INH BID 04/19/18 04/20/18 [Symbicort 80-4.5 Mcg Inhaler] Ibuprofen 200 mg PO Q6H PRN 04/19/18 04/20/18 Amlodipine Besylate [Norvasc] 2.5 mg PO DAILY #30 tablet 04/20/18 Baclofen 20 mg PO TID 04/20/18 04/20/18 Tiotropium [place] [Spiriva] 1 cap INH DAILY 04/20/18 04/20/18 Albuterol 2.5 mg INH Q4H PRN #30 ml 12/02/20 Albuterol Sulf [Ventolin Hfa 1 - 2 puffs INH Q4HR PRN #1 inhaler 12/02/20 Inhaler] Amox/Clav 875/125 [Augmentin] 1 each PO Q12H #20 tablet 12/02/20 Nebulizer and Compressor 1 each MC Q4HR PRN #1 each 12/02/20 [Compressor Nebulizer System] predniSONE [Deltasone] 10 mg PO ONCE #26 tablet 12/02/20 - Allergies Allergies/Adverse Reactions: Allergies Allergy/AdvReac Type Severity Reaction Status Date / Time No Known Drug Allergies Allergy Verified 12/02/20 10:15 - Social History Does the pt smoke?: No Smoking Status: Former smoker Does the pt drink ETOH?: No Does the pt have substance abuse?: No - Immunizations Immunizations are current?: No Immunizations: TDAP >10years/unknown - POLST Patient has POLST: Yes POLST Status: Full Code PD ED PE NORMAL - Vitals Vital signs reviewed: Yes (Hypertensive) - General General: Alert and oriented X 3, No acute distress, Well developed/nourished - HEENT HEENT: Atraumatic, PERRL, EOMI, Pharynx benign, Dentition benign (Edentulous with dentures), Other (The right TM has minimal erythema of the left TM is erythematous centrally with distortion of the umbo. The erythema is angry.) - Neck Neck: Supple, no meningeal sign, No bony TTP - Cardiac Cardiac: RRR, No murmur - Respiratory Respiratory: No respiratory distress, Other (Scattered wheezes throughout inspiratory and expiratory reduced air movement) - Back Back: No CVA TTP, No spinal TTP - Derm Derm: Normal color, Warm and dry, No rash - Extremities Extremities: No deformity, No edema - Neuro Neuro: Alert and oriented X 3, chair car driver 2-12 intact, No motor deficit, No sensory deficit, Normal speech Eye Opening: Spontaneous Motor: Obeys Commands Verbal: Oriented GCS Score: 15 - Psych Psych: Normal mood, Normal affect Results - Vitals Vitals: Vital Signs - 24 hr 12/02/20 12/02/20 12/02/20 10:01 10:15 10:48 Temperature 37.0 C Heart Rate 74 62 64 Respiratory 20 21 18 Rate Blood Pressure 174/88 H O2 Saturation 95 94 12/02/20 12/02/20 12/02/20 10:53 11:00 11:55 Temperature Heart Rate 56 L 54 L 65 Respiratory 12 21 22 Rate Blood Pressure 168/82 H 141/80 H 146/73 H O2 Saturation 100 100 92 12/02/20 12/02/20 12/02/20 12:00 12:30 13:00 Temperature Heart Rate 60 62 73 Respiratory 23 24 23 Rate Blood Pressure 138/76 H 142/82 H 158/89 H O2 Saturation 94 94 94 12/02/20 13:30 Temperature Heart Rate 70 Respiratory 24 Rate Blood Pressure 147/80 H O2 Saturation 98 Oxygen O2 Source Room air - Labs Labs: Laboratory Tests 12/02/20 12/02/20 12/02/20 10:30 10:30 10:30 WBC 4.6 L RBC 4.93 Hgb 15.4 Hct 46.9 MCV 95.1 H MCH 31.2 H MCHC 32.8 RDW 12.5 Plt Count 168 MPV 10.9 Neut # (Auto) 2.4 Lymph # (Auto) 1.1 L [place] # (Auto) 0.5 Eos # (Auto) 0.6 Baso # (Auto) 0.1 Absolute Nucleated RBC 0.00 Nucleated RBC % 0.0 Sodium 139 Potassium 3.8 Chloride 100 L Carbon Dioxide 30 Anion Gap 9.0 BUN 15 Creatinine 0.9 Estimated GFR (MDRD) 99 Glucose 116 H Calcium 8.9 Total Bilirubin 1.1 H AST 22 ALT 18 Alkaline Phosphatase 73 Troponin I High Sens 22.2 H* B-Natriuretic Peptide Total Protein 7.9 Albumin 4.0 Globulin 3.9 Albumin/Globulin Ratio 1.0 Lipase 24 12/02/20 12/02/20 10:30 12:27 WBC RBC Hgb Hct MCV MCH MCHC RDW Plt Count MPV Neut # (Auto) Lymph # (Auto) [place] # (Auto) Eos # (Auto) Baso # (Auto) Absolute Nucleated RBC Nucleated RBC % Sodium Potassium Chloride Carbon Dioxide Anion Gap BUN Creatinine Estimated GFR (MDRD) Glucose Calcium Total Bilirubin AST ALT Alkaline Phosphatase Troponin I High Sens 22.3 H* B-Natriuretic Peptide 35 Total Protein Albumin Globulin Albumin/Globulin Ratio Lipase - Rads (name of study) chest Radiology: Prelim report reviewed (Impression: No evidence of acute cardiopulmonary abnormality.), EMP read indepedently, See rad report Procedures - IVC sono (time) 1013 Bedside IVC sono: IVC measures (cm) (1.51), IVC collapsed c insp (cm) (0.62), Euvolemia PD MEDICAL DECISION MAKING - ED course Complexity details: reviewed old records, reviewed results, re-evaluated patient, considered differential, d/w patient ED course: 80-year-old male with history of COPD and CHF has developed exertional dyspnea and he is having some wheezing had improvement in route to the hospital with a DuoNeb treatment. On evaluation here in the emergency department wheezing is audible on examination, the IVC is interrogated and found to have normal parameters consistent with euvolemia and no evidence of failure. The patient is treated here in the emergency department with a DuoNeb treatment and 10 mg of dexamethasone. He does have otitis media on examination of the left TM. His chest x-ray is otherwise unremarkable. His initial troponin is mildly elevated in the 20 range. His repeat is identical. The patient has had exacerbation of COPD and he has marked improvement with a second treatment and 10 mg of dexamethasone. He does have otitis on examination and we will treat for this with Augmentin. Departure - Departure Disposition: 01 Home, Self Care Clinical Impression: COPD exacerbation Otitis media Qualifiers: Otitis media type: suppurative Chronicity: acute Laterality: left Recurrence: not specified as recurrent Spontaneous tympanic membrane rupture: without spontaneous rupture Qualified Code(s): H66.002 - Acute suppurative otitis media without spontaneous rupture of ear drum, left ear Condition: Stable Instructions: ED COPD Flare, ED Otitis Media Acute Adult Follow-Up: Alyssa Garay MD [Primary Care Provider] - Prescriptions: Nebulizer and Compressor [Compressor Nebulizer System] 1 each MC Q4HR PRN #1 each PRN Reason: COPD flair Albuterol Sulf [Ventolin Hfa Inhaler] 1 - 2 puffs INH Q4HR PRN #1 inhaler PRN Reason: Shortness Of Air/Wheezing Albuterol 2.5 mg INH Q4H PRN #30 ml PRN Reason: Wheezing Amox/Clav 875/125 [Augmentin] 1 each PO Q12H #20 tablet predniSONE [Deltasone] 10 mg PO ONCE #26 tablet Discharge Date/Time: 12/02/20 13:58
[2020-12-02 13:40] VITALS: BP 147/80
== END 2020-12-02 13:58 | disposition home or self-care (01) ==
LOC: EDSEX → EDUNIT# → ED 10:00
DX: J44.1 Chronic obstructive pulmonary disease with (acute) exacerbation (principal); H66.002 Acute suppurative otitis media without spontaneous rupture of ear drum, left ear; R79.89 Other specified abnormal findings of blood chemistry; I10 Essential (primary) hypertension; E11.9 Type 2 diabetes mellitus without complications; Z87.891 Personal history of nicotine dependence
CPT/HCPCS: 36415; 80053; 83690; 83880; 84484; 85025; 94640; 94664; 99284

== ENCOUNTER 2021-03-13 14:27 | Outpatient (CLI) | payer MEDICARE, BC | END 2021-03-13 14:28 | disposition critical access hospital (66) | LOC: EMS 14:27 | DX: R06.2 Wheezing (principal); R06.02 Shortness of breath | CPT/HCPCS: A0425; A0429 ==

== ENCOUNTER 2021-03-13 14:40 | Emergency (ER) | payer MEDICARE, BC ==
[2021-03-13 15:13] LABS: BASOPHILS # (AUTO) 0.1 10^3/uL (0.0-0.1); BASOPHILS % (AUTO) 1.5 %; EOSINOPHILS # (AUTO) 0.7 10^3/uL (0.0-0.7); EOSINOPHILS % (AUTO) 14.9 %; HCT - HEMATOCRIT 44.9 % (42.0-52.0); HGB - HEMOGLOBIN 14.5 g/dL (14.0-18.0); LYMPHOCYTES # (AUTO) 1.3 10^3/uL (1.5-3.5); MEAN CORPUSCULAR HEMOGLOBIN 30.8 pg (27.0-31.0); MEAN CORPUSCULAR HGB CONC 32.3 g/dL (32.0-36.0); MEAN CORPUSCULAR VOLUME 95.3 fL (80.0-94.0); MONOCYTES # (AUTO) 0.4 10^3/uL (0.0-1.0); MONOCYTES % (AUTO) 8.9 %; NEUTROPHILS # (AUTO) 2.1 10^3/uL (1.5-6.6); NEUTROPHILS % (AUTO) 45.5 %; PLT - PLATELET COUNT 155 10^3/uL (130-450); RED BLOOD COUNT 4.71 10^6/uL (4.70-6.10); WHITE BLOOD COUNT 4.6 x10^3/uL (4.8-10.8)
--- NOTE | 2021-03-13 15:15 | XRAY Report ---
PROCEDURE: Chest 1 View X-Ray INDICATIONS: Chest pain TECHNIQUE: One view of the chest was acquired. COMPARISON: CXR 12/02/2020, 04/19/2018. FINDINGS: Surgical changes and devices: None. Lungs and pleura: No pleural effusions or pneumothorax. Lungs appear clear. Mediastinum: Mediastinal contours appear unchanged. Heart size is within normal limits. Bones and chest wall: No suspicious bony lesions. Overlying soft tissues appear unremarkable. IMPRESSION: No acute cardiopulmonary abnormality. Reviewed by: Mark Wood MD on 03/13/2021 3:14 PM PDT Approved by: Mark Wood MD on 03/13/2021 3:14 PM PDT Station ID: [id number]
--- NOTE | 2021-03-13 15:17 | ED Physician Documentation ---
PD HPI DYSPNEA - Stated complaint Stated Complaint: DIFFICULTY BREATHING - Chief complaint Chief Complaint: Resp - History obtained from History obtained from: Patient - History of Present Illness Timing - onset: How many hours ago (couple), Today Timing - onset during: Light activity Timing - duration: Hours Timing - details: Abrupt onset, Still present (though much improved with nebulizer treatment enroute by EMS.) Inciting event(s): No: URI, Exposure (ie smoke) Improved by: Inhaler/neb Worsened by: Coughing Associated symptoms: Cough, Wheezing. No: Fever, Chest pain / discomfort, Bilateral edema Similar symptoms before: Diagnosis (COPD history without significant flares recently.) Review of Systems Constitutional: reports: Myalgias. denies: Fever, Chills Nose: denies: Rhinorrhea / runny nose, Congestion Throat: denies: Sore throat Cardiac: reports: Chest pain / pressure. denies: Palpitations Respiratory: reports: Dyspnea, Cough, Wheezing PD PAST MEDICAL HISTORY - Past Medical History Cardiovascular: Hypertension, High cholesterol, Coronary artery disease Respiratory: COPD Endocrine/Autoimmune: Type 2 diabetes GI: None : None HEENT: None Psych: None Musculoskeletal: Osteoarthritis Derm: None - Past Surgical History Past Surgical History: Yes Ortho: Arthroscopic surgery - Present Medications Home Medications: Ambulatory Orders Medication Instructions Recorded Confirmed Albuterol 2.5 mg INH Q6H PRN 12/28/17 04/20/18 Losartan Potassium 50 mg PO BID 12/28/17 04/20/18 Metoprolol Succinate [Toprol Xl] 25 mg PO DAILY 12/28/17 04/20/18 Albuterol Sulfate [Proair Hfa 2 puffs INH Q4H PRN 04/19/18 04/20/18 Inhaler] Atorvastatin Calcium 10 mg PO QPM 04/19/18 04/20/18 Budesonide/Formoterol Fumarate 2 puffs INH BID 04/19/18 04/20/18 [Symbicort 80-4.5 Mcg Inhaler] Ibuprofen 200 mg PO Q6H PRN 04/19/18 04/20/18 Amlodipine Besylate [Norvasc] 2.5 mg PO DAILY #30 tablet 04/20/18 Baclofen 20 mg PO TID 04/20/18 04/20/18 Tiotropium [place] [Spiriva] 1 cap INH DAILY 04/20/18 04/20/18 Albuterol 2.5 mg INH Q4H PRN #30 ml 12/02/20 Albuterol Sulf [Ventolin Hfa 1 - 2 puffs INH Q4HR PRN #1 inhaler 12/02/20 Inhaler] Amox/Clav 875/125 [Augmentin] 1 each PO Q12H #20 tablet 12/02/20 Nebulizer and Compressor 1 each MC Q4HR PRN #1 each 12/02/20 [Compressor Nebulizer System] predniSONE [Deltasone] 10 mg PO ONCE #26 tablet 12/02/20 Albuterol 2.5 mg INH Q4H PRN #30 neb 03/13/21 Amoxicillin 500 mg PO TID #20 cap 03/13/21 dexAMETHasone [Decadron] 4 mg PO DAILY #5 tablet 03/13/21 - Allergies Allergies/Adverse Reactions: Allergies Allergy/AdvReac Type Severity Reaction Status Date / Time No Known Drug Allergies Allergy Verified 03/13/21 14:54 - Social History Does the pt smoke?: No Smoking Status: Former smoker Does the pt drink ETOH?: No Does the pt have substance abuse?: No - Immunizations Immunizations are current?: No Immunizations: TDAP >10years/unknown - POLST Patient has POLST: Yes POLST Status: Full Code PD ED PE NORMAL - Vitals Vital signs reviewed: Yes - General General: Alert and oriented X 3, No acute distress, Well developed/nourished - HEENT HEENT: Pharynx benign - Neck Neck: Supple, no meningeal sign, No adenopathy - Cardiac Cardiac: RRR, No murmur - Respiratory Respiratory: No: Clear bilaterally (no coarse sounds. Has diffuse holoexpiratory wheezing. Mild partial sentence dyspnea. No retractions. ) - Abdomen Abdomen: Soft, Non tender - Back Back: No CVA TTP - Derm Derm: Normal color, Warm and dry - Extremities Extremities: No deformity, No edema - Neuro Neuro: Alert and oriented X 3, No motor deficit, Normal speech Results - Vitals Vitals: Oxygen O2 Source Room air - EKG (time done) 14:51 Rate: Rate (enter#) (61) Rhythm: NSR [place]: Normal Intervals: Normal [place] QRS: Normal, LVH Ischemia: Normal ST segments. No: ST elevation c/w ischemia, ST depression - Labs Labs: Laboratory Tests 03/13/21 03/13/21 03/13/21 15:04 15:04 15:04 WBC 4.6 L RBC 4.71 Hgb 14.5 Hct 44.9 MCV 95.3 H MCH 30.8 MCHC 32.3 RDW 12.0 Plt Count 155 MPV 11.0 Neut # (Auto) 2.1 Lymph # (Auto) 1.[address] [place] # (Auto) 0.4 Eos # (Auto) 0.7 Baso # (Auto) 0.1 Absolute Nucleated RBC 0.00 Nucleated RBC % 0.0 Sodium 138 Potassium 3.1 L Chloride 100 L Carbon Dioxide 29 Anion Gap 9.0 BUN 11 Creatinine 0.9 Estimated GFR (MDRD) 99 Glucose 123 H Calcium 8.9 Total Bilirubin 0.9 AST 18 ALT 13 Alkaline Phosphatase 73 Troponin I High Sens 26.9 H* Total Protein 7.1 Albumin 3.7 Globulin 3.4 Albumin/Globulin Ratio 1.1 Lipase 23 - Rads (name of study) chest xray Radiology: Prelim report reviewed (no infiltrates. Expanded lungs c/w Copd. ), See rad report PD MEDICAL DECISION MAKING - ED course Complexity details: reviewed results (no pneumonia nor CHF. ), re-evaluated patient (improved further with Duoneb treatment. ), considered differential (seems mainly COPD flare with wheeze and cough. ), d/w patient Departure - Departure Disposition: 01 Home, Self Care Clinical Impression: Acute exacerbation of COPD with asthma Dyspnea Qualifiers: Dyspnea type: shortness of breath Qualified Code(s): R06.02 - Shortness of breath Condition: Stable Record reviewed to determine appropriate education?: Yes Instructions: ED COPD Flare Follow-Up: Alyssa Garay MD [Primary Care Provider] - Prescriptions: Albuterol 2.5 mg INH Q4H PRN #30 neb PRN Reason: Wheezing Amoxicillin 500 mg PO TID #20 cap dexAMETHasone [Decadron] 4 mg PO DAILY #5 tablet Comments: Continue usual medications. Use your albuterol nebulizer 4 times a day regularly for the next 5 to 7 days. Add Decadron steroid for bronchial inflammation daily for 5 more days. Add amoxicillin 3 times a day for the next 5 days for concern of bronchial infection. There are guidelines to suggest an antibiotic in a COPD flareup can be beneficial even if you are not obviously sick. I would anticipate improvement over the next couple of days. Follow-up with your primary care if not well improved in the next several days to return to the ER if worse. Discharge Date/Time: 03/13/21 17:10
[2021-03-13 15:25] LABS: ALBUMIN 3.7 g/dL (3.2-5.5); ALBUMIN/GLOBULIN RATIO 1.1 (1.0-2.2); BILIRUBIN,TOTAL 0.9 mg/dL (0.2-1.0); CALCIUM 8.9 mg/dL (8.5-10.3); CREATININE 0.9 mg/dL (0.6-1.2); POTASSIUM 3.1 mmol/L (3.5-5.0); TOTAL PROTEIN 7.1 g/dL (6.7-8.2)
[2021-03-13] MEDS ORDERED: DEXAMETHASONE 10 MG/ML VIAL IVP STA (15:52)
[2021-03-13] MEDS ORDERED: IPRATROPIUM/ALBUTEROL 3 ML NEB INH STA (15:52)
[2021-03-13] MEDS ORDERED: AMOXICILLIN 250 MG CAPSULE PO STA (16:50)
[2021-03-13 16:56] VITALS: BP 140/69
== END 2021-03-13 17:10 | disposition home or self-care (01) ==
LOC: EDUNIT# → ED 14:40 → SUPCPDRO 14:40 → ED 17:10
DX: J44.1 Chronic obstructive pulmonary disease with (acute) exacerbation (principal); R06.02 Shortness of breath; I10 Essential (primary) hypertension; E78.00 Pure hypercholesterolemia, unspecified; J44.9 Chronic obstructive pulmonary disease, unspecified; E11.9 Type 2 diabetes mellitus without complications; I25.10 Atherosclerotic heart disease of native coronary artery without angina pectoris; Z79.899 Other long term (current) drug therapy; Z87.891 Personal history of nicotine dependence
CPT/HCPCS: 36415; 71045; 80053; 83690; 84484; 85025; 93005; 94640; 94664; 96374; 99283; 99284; A9270

== ENCOUNTER 2021-04-12 16:06 | Outpatient (CLI) | payer MEDICARE, BC | END 2021-04-12 16:07 | disposition critical access hospital (66) | LOC: EMS 16:06 | DX: R06.02 Shortness of breath (principal) | CPT/HCPCS: A0425; A0429 ==

== ENCOUNTER 2021-04-12 16:15 | Emergency (ER) | payer MEDICARE, BC ==
[2021-04-12] MEDS ORDERED: CHERRY SYRUP 10 ML UDC PO ONE (16:40)
[2021-04-12] MEDS ORDERED: DEXAMETHASONE 10 MG/ML VIAL PO STA (16:40)
--- NOTE | 2021-04-12 16:43 | ED Physician Documentation ---
PD HPI URI - Stated complaint Stated Complaint: SOA - Chief complaint Chief Complaint: Resp - History obtained from History obtained from: Patient - History of Present Illness Timing - onset: How many days ago (3) Timing duration: Days (3) Timing details: Gradual onset, Still present Associated symptoms: Dry cough, Dyspnea Contributing factors: Other (pollen 2 days ago). No: Sick contact Improves by: MDI/nebulizer Worsened by: Activity Similar symptoms before: Diagnosis (COPD) Recently seen: Not recently seen - Additional information Additional information: 80-year-old male with a history of COPD has developed acute congestion following exposure to pollen. He states this happened rather suddenly was very noticeable and he had to use his nebulizer machine. He was able to do this yesterday and the day before and today he was alone at home when he became very short of breath and had to go use his nebulizer machine. By the time medics arrived he had improved somewhat. He felt it would be unsafe for him to be at home by himself. He has not had fever aches headache or other signs of infection. Review of Systems Constitutional: denies: Fever Eyes: denies: Decreased vision Nose: denies: Congestion Throat: denies: Sore throat Cardiac: denies: Chest pain / pressure, Palpitations Respiratory: reports: Dyspnea, Cough GI: denies: Abdominal Pain, Nausea, Vomiting : denies: Dysuria, Frequency Skin: denies: Rash Musculoskeletal: denies: Neck pain, Back pain, Extremity pain PD PAST MEDICAL HISTORY - Past Medical History Cardiovascular: Hypertension, High cholesterol, Coronary artery disease Respiratory: COPD Endocrine/Autoimmune: Type 2 diabetes GI: None : None HEENT: None Psych: None Musculoskeletal: Osteoarthritis Derm: None - Past Surgical History Past Surgical History: Yes Ortho: Arthroscopic surgery - Present Medications Home Medications: Ambulatory Orders Medication Instructions Recorded Confirmed Albuterol 2.5 mg INH Q6H PRN 12/28/17 04/20/18 Losartan Potassium 50 mg PO BID 12/28/17 04/20/18 Metoprolol Succinate [Toprol Xl] 25 mg PO DAILY 12/28/17 04/20/18 Albuterol Sulfate [Proair Hfa 2 puffs INH Q4H PRN 04/19/18 04/20/18 Inhaler] Atorvastatin Calcium 10 mg PO QPM 04/19/18 04/20/18 Budesonide/Formoterol Fumarate 2 puffs INH BID 04/19/18 04/20/18 [Symbicort 80-4.5 Mcg Inhaler] Ibuprofen 200 mg PO Q6H PRN 04/19/18 04/20/18 Amlodipine Besylate [Norvasc] 2.5 mg PO DAILY #30 tablet 04/20/18 Baclofen 20 mg PO TID 04/20/18 04/20/18 Tiotropium [place] [Spiriva] 1 cap INH DAILY 04/20/18 04/20/18 Albuterol 2.5 mg INH Q4H PRN #30 ml 12/02/20 Albuterol Sulf [Ventolin Hfa 1 - 2 puffs INH Q4HR PRN #1 inhaler 12/02/20 Inhaler] Amox/Clav 875/125 [Augmentin] 1 each PO Q12H #20 tablet 12/02/20 Nebulizer and Compressor 1 each MC Q4HR PRN #1 each 12/02/20 [Compressor Nebulizer System] predniSONE [Deltasone] 10 mg PO ONCE #26 tablet 12/02/20 Albuterol 2.5 mg INH Q4H PRN #30 neb 03/13/21 Amoxicillin 500 mg PO TID #20 cap 03/13/21 dexAMETHasone [Decadron] 4 mg PO DAILY #5 tablet 03/13/21 Azithromycin [Zithromax] 250 mg PO DAILY #6 tablet 04/12/21 predniSONE [Deltasone] 10 mg PO ONCE #26 tablet 04/12/21 - Allergies Allergies/Adverse Reactions: Allergies Allergy/AdvReac Type Severity Reaction Status Date / Time No Known Drug Allergies Allergy Verified 04/12/21 16:24 - Social History Does the pt smoke?: No Smoking Status: Former smoker Does the pt drink ETOH?: No Does the pt have substance abuse?: No - Immunizations Immunizations are current?: No Immunizations: TDAP >10years/unknown - POLST Patient has POLST: Yes POLST Status: Full Code PD ED PE NORMAL - Vitals Vital signs reviewed: Yes (Hypertensive) - General General: Alert and oriented X 3, No acute distress, Well developed/nourished - HEENT HEENT: Atraumatic, PERRL, EOMI - Neck Neck: Supple, no meningeal sign, No bony TTP - Cardiac Cardiac: RRR, No murmur - Respiratory Respiratory: No respiratory distress, Other (Inspiratory and expiratory wheezes bilaterally and symmetrically) - Abdomen Abdomen: Normal bowel sounds, Soft, Non tender - Back Back: No CVA TTP, No spinal TTP - Derm Derm: Normal color, Warm and dry, No rash - Extremities Extremities: No deformity, No edema - Neuro Neuro: Alert and oriented X 3, 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 warden 2-12 intact, No motor deficit, No sensory deficit, Normal speech Eye Opening: Spontaneous Motor: Obeys Commands Verbal: Oriented GCS Score: 15 - Psych Psych: Normal mood, Normal affect Results - Vitals Vitals: Vital Signs - 24 hr 04/12/21 16:24 Temperature 36.7 C Heart Rate 66 Respiratory 16 Rate Blood Pressure 160/80 H O2 Saturation 99 Oxygen O2 Source Room air PD MEDICAL DECISION MAKING - ED course Complexity details: reviewed old records, reviewed results, re-evaluated patient, considered differential, d/w patient ED course: 80-year-old male with a history of COPD has an acute exacerbation which appears to been exacerbated by pollen. His administered dexamethasone 10 mg orally here in the emergency department and we will place him on a short course of prednisone. Patient is fully vaccinated does not have signs or symptoms of Covid and he has been without exposure that he has known. Today we did not do a Covid swab. Departure - Departure Disposition: 01 Home, Self Care Clinical Impression: Acute exacerbation of COPD with asthma Condition: Stable Instructions: ED COPD Flare Follow-Up: Alyssa Garay MD [Provider Admit Priv/Credential] - Prescriptions: predniSONE [Deltasone] 10 mg PO ONCE #26 tablet Azithromycin [Zithromax] 250 mg PO DAILY #6 tablet
--- NOTE | 2021-04-12 17:19 | XRAY Report ---
PROCEDURE: Chest 1 View X-Ray INDICATIONS: soa TECHNIQUE: One view of the chest was acquired. COMPARISON: 03/13/2021 FINDINGS: Surgical changes and devices: None. Lungs and pleura: No pleural effusions or pneumothorax. Lungs are clear. Elevation of the left he midiaphragm as for. Mediastinum: Mediastinal contours appear normal. Heart size is normal. Bones and chest wall: No suspicious bony lesions. Overlying soft tissues appear unremarkable. IMPRESSION: No acute disease. Reviewed by: David Howe MD on 04/12/2021 5:18 PM PDT Approved by: David Howe MD on 04/12/2021 5:18 PM PDT Station ID: [id number]
[2021-04-12 17:44] VITALS: BP 144/77
== END 2021-04-12 17:49 | disposition home or self-care (01) ==
LOC: EDUNIT# → ED 16:15
DX: J44.1 Chronic obstructive pulmonary disease with (acute) exacerbation (principal); I10 Essential (primary) hypertension; E11.9 Type 2 diabetes mellitus without complications; Z87.891 Personal history of nicotine dependence
CPT/HCPCS: 71045; 99283; A9270

== ENCOUNTER 2021-05-06 06:34 | Outpatient (CLI) | payer MEDICARE, BC | END 2021-05-06 06:35 | disposition critical access hospital (66) | LOC: EMS 06:34 | DX: R06.02 Shortness of breath (principal) | CPT/HCPCS: A0425; A0429 ==

== ENCOUNTER 2021-05-06 07:20 | Emergency (ER) | payer MEDICARE, BC ==
[2021-05-06] MEDS ORDERED: DEXAMETHASONE 10 MG/ML VIAL IV STA (07:44)
[2021-05-06] MEDS ORDERED: IPRATROPIUM/ALBUTEROL 3 ML NEB INH STA ×2 (07:44→14:14)
[2021-05-06] MEDS ORDERED: SODIUM CHLORIDE 0.9% 1,000 ML IV STA (07:44)
--- NOTE | 2021-05-06 08:10 | XRAY Report ---
PROCEDURE: Chest 1 View X-Ray INDICATIONS: chest pain TECHNIQUE: One view of the chest was acquired. COMPARISON: 04/12/2021 FINDINGS: Surgical changes and devices: None. Lungs and pleura: Asymmetric elevation of the left hemidiaphragm as seen on prior studies. No focal a bnormal airspace opacity. No pleural effusion or pneumothorax. Mediastinum: Mediastinal contours appear normal. Heart size is normal. Bones and chest wall: No suspicious bony lesions. Overlying soft tissues appear unremarkable. IMPRESSION: No acute cardiopulmonary process demonstrated radiographically. Reviewed by: Young Rodriguez MD on 05/06/2021 8:09 AM PDT Approved by: Young Rodriguez MD on 05/06/2021 8:09 AM PDT Station ID: [id number]
[2021-05-06] MEDS ORDERED: ALBUTEROL NEB 2.5 MG/3 ML INH STA ×2 (08:21→14:53)
[2021-05-06 08:53] LABS: BASOPHILS % (AUTO) 0.7 %; EOSINOPHILS # (AUTO) 0.2 10^3/uL (0.0-0.7); EOSINOPHILS % (AUTO) 3.2 %; HCT - HEMATOCRIT 46.7 % (42.0-52.0); HGB - HEMOGLOBIN 14.9 g/dL (14.0-18.0); LYMPHOCYTES # (AUTO) 0.8 10^3/uL (1.5-3.5); LYMPHOCYTES % (AUTO) 14.2 %; MEAN CORPUSCULAR HEMOGLOBIN 30.7 pg (27.0-31.0); MEAN CORPUSCULAR HGB CONC 31.9 g/dL (32.0-36.0); MEAN CORPUSCULAR VOLUME 96.3 fL (80.0-94.0); MEAN PLATELET VOLUME 11.1 fL (7.4-11.4); MONOCYTES # (AUTO) 0.4 10^3/uL (0.0-1.0); MONOCYTES % (AUTO) 7.7 %; NEUTROPHILS # (AUTO) 4.1 10^3/uL (1.5-6.6); NEUTROPHILS % (AUTO) 73.8 %; PLT - PLATELET COUNT 123 10^3/uL (130-450); RED BLOOD COUNT 4.85 10^6/uL (4.70-6.10); RED CELL DISTRIBUTION WIDTH 12.1 % (12.0-15.0); WHITE BLOOD COUNT 5.6 x10^3/uL (4.8-10.8)
[2021-05-06 09:03] LABS: ALBUMIN 3.9 g/dL (3.2-5.5); ALBUMIN/GLOBULIN RATIO 1.1 (1.0-2.2); BILIRUBIN,TOTAL 0.8 mg/dL (0.2-1.0); CALCIUM 8.7 mg/dL (8.5-10.3); CREATININE 0.9 mg/dL (0.6-1.2); TOTAL PROTEIN 7.4 g/dL (6.7-8.2)
--- NOTE | 2021-05-06 09:13 | ED Physician Documentation ---
PD HPI DYSPNEA - Stated complaint Stated Complaint: SOA - Chief complaint Chief Complaint: Resp - History obtained from History obtained from: Patient - Additional information Additional information: Patient comes emergency department chief complaint of dyspnea that started this morning. He states that he was not doing anything active when it started and had just gotten up. He states that is difficult to explain but something "just did not feel right" in his chest. He felt a sensation of tightness, though no chest pain. He took an nebulizer treatment at home which did help somewhat, as the patient has a history of COPD. However, the improvement was only mild and patient finally decided to come to the emergency department. Patient states he is feeling little better. He still has a mild sense of tightness in his chest and feels slightly short of breath when he is talking. Patient does not have any nausea. No diaphoresis or lightheadedness. He denies any history of AL that he knows of, though a diagnosis of coronary artery disease is on his history here. Patient has a history of diabetes and hypertension. He does not currently smoke. Patient does note that he was vaccinated with both shots of the Moderna vaccine back in September. Review of Systems Ten Systems: 10 systems reviewed and negative Constitutional: reports: Reviewed and negative. denies: Fever Eyes: reports: Reviewed and negative Ears: reports: Reviewed and negative Nose: reports: Reviewed and negative Throat: reports: Reviewed and negative Cardiac: reports: Chest pain / pressure (Tightness) Respiratory: reports: Dyspnea. denies: Cough GI: reports: Reviewed and negative : reports: Reviewed and negative Skin: reports: Reviewed and negative Musculoskeletal: reports: Reviewed and negative Neurologic: reports: Reviewed and negative Psychiatric: reports: Reviewed and negative Endocrine: reports: Reviewed and negative Immunocompromised: reports: Reviewed and negative PD PAST MEDICAL HISTORY - Past Medical History Cardiovascular: Hypertension, High cholesterol, Coronary artery disease Respiratory: COPD Endocrine/Autoimmune: Type 2 diabetes GI: None : None HEENT: None Psych: None Musculoskeletal: Osteoarthritis Derm: None - Past Surgical History Past Surgical History: Yes Ortho: Arthroscopic surgery - Present Medications Home Medications: Ambulatory Orders Medication Instructions Recorded Confirmed Albuterol 2.5 mg INH Q6H PRN 12/28/17 04/20/18 Losartan Potassium 50 mg PO BID 12/28/17 04/20/18 Metoprolol Succinate [Toprol Xl] 25 mg PO DAILY 12/28/17 04/20/18 Albuterol Sulfate [Proair Hfa 2 puffs INH Q4H PRN 04/19/18 04/20/18 Inhaler] Atorvastatin Calcium 10 mg PO QPM 04/19/18 04/20/18 Budesonide/Formoterol Fumarate 2 puffs INH BID 04/19/18 04/20/18 [Symbicort 80-4.5 Mcg Inhaler] Ibuprofen 200 mg PO Q6H PRN 04/19/18 04/20/18 Amlodipine Besylate [Norvasc] 2.5 mg PO DAILY #30 tablet 04/20/18 Baclofen 20 mg PO TID 04/20/18 04/20/18 Tiotropium [place] [Spiriva] 1 cap INH DAILY 04/20/18 04/20/18 Albuterol 2.5 mg INH Q4H PRN #30 ml 12/02/20 Albuterol Sulf [Ventolin Hfa 1 - 2 puffs INH Q4HR PRN #1 inhaler 12/02/20 Inhaler] Amox/Clav 875/125 [Augmentin] 1 each PO Q12H #20 tablet 12/02/20 Nebulizer and Compressor 1 each MC Q4HR PRN #1 each 12/02/20 [Compressor Nebulizer System] predniSONE [Deltasone] 10 mg PO ONCE #26 tablet 12/02/20 Albuterol 2.5 mg INH Q4H PRN #30 neb 03/13/21 Amoxicillin 500 mg PO TID #20 cap 03/13/21 dexAMETHasone [Decadron] 4 mg PO DAILY #5 tablet 03/13/21 Azithromycin [Zithromax] 250 mg PO DAILY #6 tablet 04/12/21 predniSONE [Deltasone] 10 mg PO ONCE #26 tablet 04/12/21 - Allergies Allergies/Adverse Reactions: Allergies Allergy/AdvReac Type Severity Reaction Status Date / Time No Known Drug Allergies Allergy Verified 04/12/21 16:24 - Social History Does the pt smoke?: No Smoking Status: Never smoker Does the pt drink ETOH?: No Does the pt have substance abuse?: No - Immunizations Immunizations are current?: No Immunizations: TDAP >10years/unknown - POLST Patient has POLST: Yes POLST Status: Full Code PD ED PE NORMAL - Vitals Vital signs reviewed: Yes - General General: Alert and oriented X 3, No acute distress, Well developed/nourished - HEENT HEENT: Atraumatic, PERRL, EOMI, Moist mucous membranes - Neck Neck: Supple, no meningeal sign - Cardiac Cardiac: RRR, No murmur, Strong equal pulses - Respiratory Respiratory: No respiratory distress, Other (Moderate bilateral expiratory wheezes without decreased air movement.) - Abdomen Abdomen: Soft, Non tender, Non distended - Back Back: No CVA TTP, No spinal TTP - Derm Derm: Normal color, Warm and dry, No rash - Extremities Extremities: No deformity, No edema - Neuro Neuro: Alert and oriented X 3, 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, No motor deficit, No sensory deficit, Normal speech - Psych Psych: Normal mood, Normal affect Results - Vitals Vitals: Vital Signs - 24 hr 05/06/21 05/06/21 05/06/21 07:27 07:59 08:26 Temperature 36.5 C Heart Rate 89 83 83 Respiratory 24 16 16 Rate Blood Pressure 175/101 H O2 Saturation 99 05/06/21 05/06/21 05/06/21 10:05 11:32 13:33 Temperature Heart Rate 85 81 83 Respiratory 25 H 24 15 Rate Blood Pressure 145/77 H 149/80 H 159/82 H O2 Saturation 97 98 98 05/06/21 05/06/21 05/06/21 13:35 14:13 15:02 Temperature 36.8 C Heart Rate 84 74 68 Respiratory 14 22 22 Rate Blood Pressure 159/82 H 158/84 H O2 Saturation 98 96 05/06/21 16:02 Temperature Heart Rate 74 Respiratory 24 Rate Blood Pressure 149/80 H O2 Saturation 97 Oxygen O2 Source Room air - EKG (time done) 0751 Rate: Rate (enter#) (73) Rhythm: NSR [place]: Normal Intervals: Normal NE, Other QRS: Normal Ischemia: Normal ST segments Compare to prior EKG: Unchanged from prior EKG Computer interpretation: Agree with computer - Labs Labs: Laboratory Tests 05/06/21 05/06/21 05/06/21 08:43 08:43 08:43 WBC 5.6 RBC 4.85 Hgb 14.9 Hct 46.7 MCV 96.3 H MCH 30.7 MCHC 31.9 L RDW 12.1 Plt Count 123 L MPV 11.1 Neut # (Auto) 4.1 Lymph # (Auto) 0.8 L [place] # (Auto) 0.4 Eos # (Auto) 0.2 Baso # (Auto) 0.0 Absolute Nucleated RBC 0.00 Nucleated RBC % 0.0 Sodium 141 Potassium 3.0 L Chloride 98 L Carbon Dioxide 31 Anion Gap 12.0 BUN 17 Creatinine 0.9 Estimated GFR (MDRD) 99 Glucose 143 H Calcium 8.7 Total Bilirubin 0.8 AST 19 ALT 15 Alkaline Phosphatase 74 Troponin I High Sens 33.5 H* B-Natriuretic Peptide Total Protein 7.4 Albumin 3.9 Globulin 3.5 Albumin/Globulin Ratio 1.1 Lipase 38 Nasal Adenovirus (PCR) Nasal B. parapertussis DNA (PCR) Nasal Coronavir 229E PCR Nasal Coronavir HKU1 PCR Nasal Coronavir NL63 PCR Nasal Coronavir OC43 PCR Nasal Enterovir/Rhinovir PCR Nasal Influenza B PCR Nasal Influenza A PCR Nasal Parainfluen 1 PCR Nasal Parainfluen 2 PCR Nasal Parainfluen 3 PCR Nasal Parainfluen 4 PCR Nasal RSV (PCR) Nasal B.pertussis DNA PCR Nasal C.pneumoniae (PCR) [place] Human Metapneumo PCR Nasal M.pneumoniae (PCR) Nasal SARS-CoV-2 (PCR) 05/06/21 05/06/21 05/06/21 08:43 10:40 12:13 WBC RBC Hgb Hct MCV MCH MCHC RDW Plt Count MPV Neut # (Auto) Lymph # (Auto) [place] # (Auto) Eos # (Auto) Baso # (Auto) Absolute Nucleated RBC Nucleated RBC % Sodium Potassium Chloride Carbon Dioxide Anion Gap BUN Creatinine Estimated GFR (MDRD) Glucose Calcium Total Bilirubin AST ALT Alkaline Phosphatase Troponin I High Sens 43.6 H* B-Natriuretic Peptide 39 Total Protein Albumin Globulin Albumin/Globulin Ratio Lipase Nasal Adenovirus (PCR) NOT DETECTED Nasal B. parapertussis DNA (PCR) NOT DETECTED Nasal Coronavir 229E PCR NOT DETECTED Nasal Coronavir HKU1 PCR NOT DETECTED Nasal Coronavir NL63 PCR NOT DETECTED Nasal Coronavir OC43 PCR NOT DETECTED Nasal Enterovir/Rhinovir PCR NOT DETECTED Nasal Influenza B PCR NOT DETECTED Nasal Influenza A PCR NOT DETECTED Nasal Parainfluen 1 PCR NOT DETECTED Nasal Parainfluen 2 PCR NOT DETECTED Nasal Parainfluen 3 PCR NOT DETECTED Nasal Parainfluen 4 PCR NOT DETECTED Nasal RSV (PCR) NOT DETECTED Nasal B.pertussis DNA PCR NOT DETECTED Nasal C.pneumoniae (PCR) NOT DETECTED [place] Human Metapneumo PCR NOT DETECTED Nasal M.pneumoniae (PCR) NOT DETECTED Nasal SARS-CoV-2 (PCR) NOT DETECTED 05/06/21 12:24 WBC RBC Hgb Hct MCV MCH MCHC RDW Plt Count MPV Neut # (Auto) Lymph # (Auto) [place] # (Auto) Eos # (Auto) Baso # (Auto) Absolute Nucleated RBC Nucleated RBC % Sodium Potassium Chloride Carbon Dioxide Anion Gap BUN Creatinine Estimated GFR (MDRD) Glucose Calcium Total Bilirubin AST ALT Alkaline Phosphatase Troponin I High Sens 64.1 H* B-Natriuretic Peptide Total Protein Albumin Globulin Albumin/Globulin Ratio Lipase Nasal Adenovirus (PCR) Nasal B. parapertussis DNA (PCR) Nasal Coronavir 229E PCR Nasal Coronavir HKU1 PCR Nasal Coronavir NL63 PCR Nasal Coronavir OC43 PCR Nasal Enterovir/Rhinovir PCR Nasal Influenza B PCR Nasal Influenza A PCR Nasal Parainfluen 1 PCR Nasal Parainfluen 2 PCR Nasal Parainfluen 3 PCR Nasal Parainfluen 4 PCR Nasal RSV (PCR) Nasal B.pertussis DNA PCR Nasal C.pneumoniae (PCR) [place] Human Metapneumo PCR Nasal M.pneumoniae (PCR) Nasal SARS-CoV-2 (PCR) - Rads (name of study) CXR Radiology: Final report received, EMP read indepedently, See rad report (neg) PD MEDICAL DECISION MAKING - ED course Complexity details: reviewed results, re-evaluated patient, considered differential, d/w patient ED course: The patient was worked up with EKG, which was unremarkable for acute changes, labs, and chest x-ray. Given his expiratory wheezing, I felt that he Would benefit from a nebulizer treatment. He was given a DuoNeb plus IV Decadron, with report of improvement in symptoms. Patient's work-up revealed an initial troponin elevated at 30. Patient is actually feeling quite a bit better, but I felt that he should have a repeat and when this was done was found to be 43. The patient was given an aspirin and a dose of metoprolol, and started on a heparin drip. I did start the process of attempting to get the patient transferred and ultimately, I was able to speak with Dr. Goyo Londono of cardiology at [facility]. He agreed the patient should be transferred. I then spoke with Dr. Sedrick MD hospitalist on duty and she graciously agreed to accept the patient in transfer. Shortly after this, I was summoned to the patient's room with report of severe shortness of breath. The patient was found to be sitting in a tripod position in respiratory distress, stating he felt as though he was going to faint. His oxygen saturation was trending steadily down from the 90s into the upper 80s. Examination of his lungs revealed very little air movement with a few tight wheezes. He was initially immediately placed on 100% oxygen while a DuoNeb was prepared. This was administered and did bring fairly bell relief to the patient although his breath sounds still continue to be quite a bit tighter than on his initial arrival in the emergency department, despite some improvement with the DuoNeb. Patient was given another albuterol nebulizer treatment which after which he was found to be reporting much clinical improvement, though his breath sounds were still fairly tight. Patient was also given another dose of Decadron as it had already been nearly 6 hours since his last dose. Repeat EKG at this time did not show any significant change since the last one. At this point in time, the patient is awaiting transfer to [facility]. Departure - Departure Disposition: 02 Transfer Acute Care Hosp Clinical Impression: NSTEMI (non-ST elevated myocardial infarction), COPD exacerbation Condition: Serious
[2021-05-06] MEDS ORDERED: ASPIRIN CHEW 81 MG TABLET PO STA (12:44)
[2021-05-06] MEDS ORDERED: HEPARIN 25000UNITS/500ML (D5W) 25,000 UNIT/500 ML BAG IV SCH (13:00)
[2021-05-06] MEDS ORDERED: METOPROLOL TARTRATE 50 MG TABLET PO STA (13:13)
[2021-05-06 13:22] LABS: B. PARAPERTUSSIS- RESP PCR PAN NOT DETECTED; B. PERTUSSIS- RESP PCR PANEL NOT DETECTED; C. PNEUMONIAE- RESP PCR PANEL NOT DETECTED; CORONAVIRUS 229E-RESP PCR NOT DETECTED; CORONAVIRUS HKU1-RESP PCR NOT DETECTED; CORONAVIRUS NL63-RESP PCR NOT DETECTED; CORONAVIRUS OC43-RESP PCR NOT DETECTED; HUMAN METAPNEUMOVIRUS NOT DETECTED; INFLUENZA A- RESP PCR PANEL NOT DETECTED; INFLUENZA B - RESP PCR PANEL NOT DETECTED; M. PNEUMONIAE- RESP PCR PANEL NOT DETECTED; PARAINFLUENZA VIRUS 1 NOT DETECTED; PARAINFLUENZA VIRUS 2 NOT DETECTED; PARAINFLUENZA VIRUS 3 NOT DETECTED; PARAINFLUENZA VIRUS 4 NOT DETECTED; RHINOVIRUS/ENTEROVIRUS NOT DETECTED; RSV- RESP PCR PANEL NOT DETECTED; SARS-CoV-2 -RESP PCR PANEL NOT DETECTED
[2021-05-06] MEDS ORDERED: DEXAMETHASONE 10 MG/ML VIAL IVP STA ×2 (14:23)
[2021-05-06 16:03] VITALS: BP 149/80
== END 2021-05-06 17:24 | disposition short-term general hospital (02) ==
LOC: EDUNIT# → ED 07:20
DX: I21.4 Non-ST elevation (NSTEMI) myocardial infarction (principal); J44.1 Chronic obstructive pulmonary disease with (acute) exacerbation; I10 Essential (primary) hypertension; I25.10 Atherosclerotic heart disease of native coronary artery without angina pectoris; E11.9 Type 2 diabetes mellitus without complications; Z20.822 Contact with and (suspected) exposure to COVID-19
CPT/HCPCS: 36415; 71045; 80053; 83690; 83880; 84484; 85025; 87631; 93005; 94640; 96374; 96375; 99285; A9270; 0202U

== ENCOUNTER 2021-06-07 13:34 | Outpatient (CLI) | payer MEDICARE, BC | END 2021-06-07 13:35 | disposition EMS.NT | LOC: EMS 13:34 | DX: J44.1 Chronic obstructive pulmonary disease with (acute) exacerbation (principal) ==

== ENCOUNTER 2021-07-23 15:41 | Outpatient (CLI) | payer MEDICARE, BC | END 2021-07-23 15:42 | disposition EMS.NT | LOC: EMS 15:41 | DX: R06.00 Dyspnea, unspecified (principal); R06.2 Wheezing ==

== ENCOUNTER 2022-02-04 09:08 | Emergency (ER) | payer MEDICARE, BC ==
--- NOTE | 2022-02-04 09:31 | ED Physician Documentation ---
History of Present Illness - Stated complaint Stated Complaint: SOA - Chief complaint Chief Complaint: Cardiac - History obtained from History obtained from: Patient - Additonal information Additional information: Patient is an 81-year-old male with a history of COPD presenting for evaluation of palpitations that started approximately 30 to 60 minutes ago. Patient was sitting in a chair at home and when he went to stand up felt his heart beating fast.Feeling any difficulty breathing or chest pain at that time (contrary to triage note). He states that lasted approximately 3 to 4 minutes and has resolved by the time EMS arrived. He currently states he feels well without any complaints and feels like he can walk out of here. He denies feeling ill in recent days. He denies a history of known arrhythmias.He denies any pain or swelling in his lower extremities. Review of Systems Constitutional: denies: Fever Nose: denies: Congestion Cardiac: reports: Palpitations. denies: Chest pain / pressure Respiratory: denies: Dyspnea, Cough GI: denies: Abdominal Pain, Vomiting, Diarrhea : denies: Dysuria Skin: denies: Rash Musculoskeletal: denies: Back pain Neurologic: denies: Headache PD PAST MEDICAL HISTORY - Past Medical History Cardiovascular: Hypertension, High cholesterol, Coronary artery disease Respiratory: COPD Endocrine/Autoimmune: Type 2 diabetes GI: None : None HEENT: None Psych: None Musculoskeletal: Osteoarthritis Derm: None - Past Surgical History Past Surgical History: Yes Ortho: Arthroscopic surgery - Present Medications Home Medications: Ambulatory Orders Medication Instructions Recorded Confirmed Albuterol 2.5 mg INH Q6H PRN 12/28/17 04/20/18 Losartan Potassium 50 mg PO BID 12/28/17 04/20/18 Metoprolol Succinate [Toprol Xl] 25 mg PO DAILY 12/28/17 04/20/18 Albuterol Sulfate [Proair Hfa 2 puffs INH Q4H PRN 04/19/18 04/20/18 Inhaler] Atorvastatin Calcium 10 mg PO QPM 04/19/18 04/20/18 Budesonide/Formoterol Fumarate 2 puffs INH BID 04/19/18 04/20/18 [Symbicort 80-4.5 Mcg Inhaler] Ibuprofen 200 mg PO Q6H PRN 04/19/18 04/20/18 Amlodipine Besylate [Norvasc] 2.5 mg PO DAILY #30 tablet 04/20/18 Baclofen 20 mg PO TID 04/20/18 04/20/18 Tiotropium [place] [Spiriva] 1 cap INH DAILY 04/20/18 04/20/18 Albuterol 2.5 mg INH Q4H PRN #30 ml 12/02/20 Albuterol Sulf [Ventolin Hfa 1 - 2 puffs INH Q4HR PRN #1 inhaler 12/02/20 Inhaler] Amox/Clav 875/125 [Augmentin] 1 each PO Q12H #20 tablet 12/02/20 Nebulizer and Compressor 1 each MC Q4HR PRN #1 each 12/02/20 [Compressor Nebulizer System] predniSONE [Deltasone] 10 mg PO ONCE #26 tablet 12/02/20 Albuterol 2.5 mg INH Q4H PRN #30 neb 03/13/21 Amoxicillin 500 mg PO TID #20 cap 03/13/21 dexAMETHasone [Decadron] 4 mg PO DAILY #5 tablet 03/13/21 Azithromycin [Zithromax] 250 mg PO DAILY #6 tablet 04/12/21 predniSONE [Deltasone] 10 mg PO ONCE #26 tablet 04/12/21 - Allergies Allergies/Adverse Reactions: Allergies Allergy/AdvReac Type Severity Reaction Status Date / Time No Known Drug Allergies Allergy Verified 02/04/22 09:14 - Social History Does the pt smoke?: No Smoking Status: Never smoker Does the pt drink ETOH?: No Does the pt have substance abuse?: No - Immunizations Immunizations are current?: No Immunizations: TDAP >10years/unknown - POLST Patient has POLST: Yes POLST Status: Full Code PD ED PE NORMAL - General General: Alert and oriented X 3, No acute distress, Well developed/nourished - HEENT HEENT: Atraumatic, Moist mucous membranes - Neck Neck: Supple, no meningeal sign - Cardiac Cardiac: No murmur, Strong equal pulses, Other (Bradycardic in the 50s, Regular rhythm) - Respiratory Respiratory: No respiratory distress, Clear bilaterally, Other - Abdomen Abdomen: Normal bowel sounds, Soft, Non tender, Non distended - Derm Derm: Warm and dry - Extremities Extremities: No edema, No calf tenderness / cord - Neuro Neuro: Alert and oriented X 3, Normal speech Results - Vitals Vitals: Vital Signs - 24 hr 02/04/22 02/04/22 02/04/22 09:15 09:40 10:00 Temperature 37.2 C Heart Rate 53 L 61 57 L Respiratory 17 19 24 Rate Blood Pressure 188/86 H 162/86 H 166/70 H O2 Saturation 98 99 97 02/04/22 02/04/22 02/04/22 10:30 11:00 11:30 Temperature Heart Rate 54 L 48 L 48 L Respiratory 12 18 23 Rate Blood Pressure 172/78 H 146/57 H 179/78 H O2 Saturation 100 99 99 Oxygen O2 Source Room air - EKG (time done) 0917 Rate: Rate (enter#) (53) Rhythm: Sinus bradycardia Ischemia: Non specific changes (T wave flattening in lateral leads). No: ST elevation c/w ischemia - Labs Labs: Laboratory Tests 02/04/22 02/04/22 02/04/22 09:31 09:31 09:31 WBC 3.9 L RBC 4.56 L Hgb 14.2 Hct 43.6 MCV 95.6 H MCH 31.1 H MCHC 32.6 RDW 12.2 Plt Count 127 L MPV 10.9 Neut # (Auto) 2.1 Lymph # (Auto) 1.1 L [place] # (Auto) 0.4 Eos # (Auto) 0.3 Baso # (Auto) 0.1 Absolute Nucleated RBC 0.00 Nucleated RBC % 0.0 Sodium 141 Potassium 3.3 L Chloride 100 L Carbon Dioxide 31 Anion Gap 10.0 BUN 11 Creatinine 0.9 Estimated GFR (MDRD) 98 Glucose 101 H Calcium 9.2 Magnesium 1.8 Total Bilirubin 1.3 H AST 27 ALT 17 Alkaline Phosphatase 52 Troponin I High Sens 49.9 H* Total Protein 7.0 Albumin 4.0 Globulin 3.0 Albumin/Globulin Ratio 1.3 Lipase 25 02/04/22 11:19 WBC RBC Hgb Hct MCV MCH MCHC RDW Plt Count MPV Neut # (Auto) Lymph # (Auto) [place] # (Auto) Eos # (Auto) Baso # (Auto) Absolute Nucleated RBC Nucleated RBC % Sodium Potassium Chloride Carbon Dioxide Anion Gap BUN Creatinine Estimated GFR (MDRD) Glucose Calcium Magnesium Total Bilirubin AST ALT Alkaline Phosphatase Troponin I High Sens 48.8 H* Total Protein Albumin Globulin Albumin/Globulin Ratio Lipase PD MEDICAL DECISION MAKING - ED course Complexity details: reviewed results, re-evaluated patient, d/w patient ED course: Patient is an 81-year-old male presenting for evaluation of palpitations. EKG demonstrates a sinus rhythm. Patient is without other symptoms such as chest pain or difficulty breathing, contrary to triage note. Troponin ordered from triage. Troponin is mildly elevated but lower than previous visits. Again he denies any episodes of chest pain. Repeat troponin is flat with no change. Patient is symptom-free here. Doubt pulmonary embolism or dissection. No signs of ACS at this time. Patient is comfortable with plan for discharge. Potassium noted to be slightly low and was given oral replacement. He is aware of return precautions. Departure - Departure Disposition: 01 Home, Self Care Clinical Impression: Palpitation, Hypokalemia Condition: Stable Instructions: ED Potassium Deficiency, ED Palpitations Follow-Up: Alyssa Garay MD [Primary Care Provider] - Comments: You were evaluated for feeling a fast heart beat earlier today. Your EKG does not show any irregular rhythm.We checked your electrolytes and your potassium was slightly low and you were given a potassium pill. We also checked your heart and there are no signs of a heart attack at this time. Please follow-up with your primary care doctor in the next week. If any worsening symptoms please return to the emergency department. Discharge Date/Time: 02/04/22 12:17
[2022-02-04 09:39] LABS: BASOPHILS # (AUTO) 0.1 10^3/uL (0.0-0.1); BASOPHILS % (AUTO) 1.3 %; EOSINOPHILS # (AUTO) 0.3 10^3/uL (0.0-0.7); EOSINOPHILS % (AUTO) 8.4 %; HCT - HEMATOCRIT 43.6 % (42.0-52.0); HGB - HEMOGLOBIN 14.2 g/dL (14.0-18.0); LYMPHOCYTES # (AUTO) 1.1 10^3/uL (1.5-3.5); LYMPHOCYTES % (AUTO) 26.7 %; MEAN CORPUSCULAR HEMOGLOBIN 31.1 pg (27.0-31.0); MEAN CORPUSCULAR HGB CONC 32.6 g/dL (32.0-36.0); MEAN CORPUSCULAR VOLUME 95.6 fL (80.0-94.0); MEAN PLATELET VOLUME 10.9 fL (7.4-11.4); MONOCYTES # (AUTO) 0.4 10^3/uL (0.0-1.0); MONOCYTES % (AUTO) 10.9 %; NEUTROPHILS # (AUTO) 2.1 10^3/uL (1.5-6.6); NEUTROPHILS % (AUTO) 52.4 %; PLT - PLATELET COUNT 127 10^3/uL (130-450); RED BLOOD COUNT 4.56 10^6/uL (4.70-6.10); RED CELL DISTRIBUTION WIDTH 12.2 % (12.0-15.0); WHITE BLOOD COUNT 3.9 x10^3/uL (4.8-10.8)
--- NOTE | 2022-02-04 09:47 | XRAY Report ---
PROCEDURE: Chest 1 View X-Ray INDICATIONS: Chest pain TECHNIQUE: One view of the chest was acquired. COMPARISON: Chest radiographs 05/06/2021 FINDINGS: Surgical changes and devices: None. Lungs and pleura: No pleural effusions or pneumothorax. Lungs are clear. Mediastinum: Mediastinal contours appear normal. Heart size is normal. Bones and chest wall: No suspicious bony lesions. Overlying soft tissues appear unremarkable. IMPRESSION: No acute cardiopulmonary abnormality. Reviewed by: Aly Schneider MD on 02/04/2022 9:46 AM PDT Approved by: lAy Schneider MD on 02/04/2022 9:46 AM PDT Station ID: [id number]
[2022-02-04 09:56] LABS: ALBUMIN/GLOBULIN RATIO 1.3 (1.0-2.2); BILIRUBIN,TOTAL 1.3 mg/dL (0.2-1.0); CALCIUM 9.2 mg/dL (8.5-10.3); CREATININE 0.9 mg/dL (0.6-1.2); MAGNESIUM 1.8 mg/dL (1.7-2.8); POTASSIUM 3.3 mmol/L (3.5-5.0)
[2022-02-04] MEDS ORDERED: POTASSIUM CHLORIDE 20 MEQ TABLET PO STA (10:31)
[2022-02-04 11:35] VITALS: BP 179/78
== END 2022-02-04 12:17 | disposition home or self-care (01) ==
LOC: EDUNIT# → ED 09:08
DX: R00.2 Palpitations (principal); E87.6 Hypokalemia
CPT/HCPCS: 36415; 71045; 80053; 83690; 83735; 84484; 85025; 93005; 99282; 99284; A9270

== ENCOUNTER 2022-02-08 13:19 | Outpatient (CLI) | payer MEDICARE, BC | END 2022-02-08 13:20 | disposition critical access hospital (66) | LOC: EMS 13:19 | DX: R06.00 Dyspnea, unspecified (principal); R07.89 Other chest pain; F41.9 Anxiety disorder, unspecified | CPT/HCPCS: A0425; A0427 ==

== ENCOUNTER 2022-02-08 13:32 | Emergency (ER) | payer MEDICARE, BC ==
[2022-02-08] MEDS ORDERED: LORazepam 0.5 MG TABLET PO STA (13:44)
[2022-02-08 14:06] LABS: BASOPHILS % (AUTO) 1.3 %; EOSINOPHILS # (AUTO) 0.3 10^3/uL (0.0-0.7); EOSINOPHILS % (AUTO) 7.9 %; HCT - HEMATOCRIT 43.3 % (42.0-52.0); HGB - HEMOGLOBIN 14.3 g/dL (14.0-18.0); LYMPHOCYTES # (AUTO) 0.9 10^3/uL (1.5-3.5); LYMPHOCYTES % (AUTO) 28.5 %; MEAN CORPUSCULAR HEMOGLOBIN 31.4 pg (27.0-31.0); MEAN CORPUSCULAR VOLUME 95.2 fL (80.0-94.0); MEAN PLATELET VOLUME 11.4 fL (7.4-11.4); MONOCYTES # (AUTO) 0.3 10^3/uL (0.0-1.0); MONOCYTES % (AUTO) 10.1 %; NEUTROPHILS # (AUTO) 1.7 10^3/uL (1.5-6.6); NEUTROPHILS % (AUTO) 52.2 %; PLT - PLATELET COUNT 137 10^3/uL (130-450); RED BLOOD COUNT 4.55 10^6/uL (4.70-6.10); RED CELL DISTRIBUTION WIDTH 12.2 % (12.0-15.0); WHITE BLOOD COUNT 3.2 x10^3/uL (4.8-10.8)
[2022-02-08 14:17] LABS: ALBUMIN 3.9 g/dL (3.2-5.5); ALBUMIN/GLOBULIN RATIO 1.3 (1.0-2.2); BILIRUBIN,TOTAL 1.3 mg/dL (0.2-1.0); CALCIUM 9.4 mg/dL (8.5-10.3); POTASSIUM 3.6 mmol/L (3.5-5.0); TOTAL PROTEIN 6.8 g/dL (6.7-8.2)
--- NOTE | 2022-02-08 14:26 | XRAY Report ---
PROCEDURE: Chest 1 View X-Ray INDICATIONS: dyspnea COMMENTS: dyspnea, pt states he couldnt catch his breath PRIORS: 02/04/22 TECHNIQUE: One view of the chest was acquired. COMPARISON: 02/04/2022, 05/06/2021 FINDINGS: Surgical changes and devices: None. Lungs and pleura: No pleural effusions or pneumothorax. Lungs are clear. Elevation of the left hemidiaphragm is unchanged. Mediastinum: Mediastinal contours appear normal. Heart size is normal. Bones and chest wall: No suspicious bony lesions. Overlying soft tissues appear unremarkable. IMPRESSION: No acute cardiopulmonary abnormality. Reviewed by: Vitor Saleh on 02/08/2022 1:25 PM [facility]AR[facility] Approved by: Vitor Saleh on 02/08/2022 1:25 PM KAR[facility] Station ID: [id number]
--- NOTE | 2022-02-08 14:46 | ED Physician Documentation ---
History of Present Illness - Stated complaint Stated Complaint: COPD EXACERBATION - Chief complaint Chief Complaint: Resp - History obtained from History obtained from: Patient, EMS - History of Present Illness Timing: Today Pain level max: 0 Pain level now: 0 - Additonal information Additional information: 81-year-old male brought in by EMS for increasing anxiety and difficulty breathing today. No change with nebulizer treatment. No chest pain. No hypoxia. Does not use oxygen at home. He states he has been feeling increasingly anxious over the past few weeks. Has an appointment with his doctor on Thursday to discuss his anxiety. No fevers. No chills. No cough. Nothing makes it better or worse. Review of Systems Constitutional: denies: Fever, Chills Nose: denies: Rhinorrhea / runny nose, Congestion Throat: denies: Sore throat Cardiac: denies: Chest pain / pressure, Palpitations Respiratory: denies: Cough, Wheezing Skin: denies: Rash Musculoskeletal: denies: Neck pain, Back pain Neurologic: denies: Headache PD PAST MEDICAL HISTORY - Past Medical History Cardiovascular: Hypertension, High cholesterol, Coronary artery disease Respiratory: COPD Endocrine/Autoimmune: Type 2 diabetes GI: None : None HEENT: None Psych: None Musculoskeletal: Osteoarthritis Derm: None - Past Surgical History Past Surgical History: Yes Ortho: Arthroscopic surgery - Present Medications Home Medications: Ambulatory Orders Medication Instructions Recorded Confirmed Albuterol 2.5 mg INH Q6H PRN 12/28/17 04/20/18 Losartan Potassium 50 mg PO BID 12/28/17 04/20/18 Metoprolol Succinate [Toprol Xl] 25 mg PO DAILY 12/28/17 04/20/18 Albuterol Sulfate [Proair Hfa 2 puffs INH Q4H PRN 04/19/18 04/20/18 Inhaler] Atorvastatin Calcium 10 mg PO QPM 04/19/18 04/20/18 Budesonide/Formoterol Fumarate 2 puffs INH BID 04/19/18 04/20/18 [Symbicort 80-4.5 Mcg Inhaler] Ibuprofen 200 mg PO Q6H PRN 04/19/18 04/20/18 Amlodipine Besylate [Norvasc] 2.5 mg PO DAILY #30 tablet 04/20/18 Baclofen 20 mg PO TID 04/20/18 04/20/18 Tiotropium [place] [Spiriva] 1 cap INH DAILY 04/20/18 04/20/18 Albuterol 2.5 mg INH Q4H PRN #30 ml 12/02/20 Albuterol Sulf [Ventolin Hfa 1 - 2 puffs INH Q4HR PRN #1 inhaler 12/02/20 Inhaler] Amox/Clav 875/125 [Augmentin] 1 each PO Q12H #20 tablet 12/02/20 Nebulizer and Compressor 1 each MC Q4HR PRN #1 each 12/02/20 [Compressor Nebulizer System] predniSONE [Deltasone] 10 mg PO ONCE #26 tablet 12/02/20 Albuterol 2.5 mg INH Q4H PRN #30 neb 03/13/21 Amoxicillin 500 mg PO TID #20 cap 03/13/21 dexAMETHasone [Decadron] 4 mg PO DAILY #5 tablet 03/13/21 Azithromycin [Zithromax] 250 mg PO DAILY #6 tablet 04/12/21 predniSONE [Deltasone] 10 mg PO ONCE #26 tablet 04/12/21 - Allergies Allergies/Adverse Reactions: Allergies Allergy/AdvReac Type Severity Reaction Status Date / Time No Known Drug Allergies Allergy Verified 02/04/22 09:14 - Social History Does the pt smoke?: No Smoking Status: Never smoker Does the pt drink ETOH?: No Does the pt have substance abuse?: No - Immunizations Immunizations are current?: No Immunizations: TDAP >10years/unknown - POLST Patient has POLST: Yes POLST Status: Full Code PD ED PE NORMAL - Vitals Vital signs reviewed: Yes - General General: Alert and oriented X 3, No acute distress - HEENT HEENT: PERRL, Moist mucous membranes - Neck Neck: Supple, no meningeal sign - Cardiac Cardiac: RRR, Strong equal pulses - Respiratory Respiratory: No respiratory distress, Clear bilaterally - Abdomen Abdomen: Soft, Non tender, Non distended - Derm Derm: Warm and dry - Extremities Extremities: No edema - Neuro Neuro: Alert and oriented X 3 - Psych Psych: Normal mood, Normal affect Results - Vitals Vitals: Vital Signs - 24 hr 02/08/22 02/08/22 02/08/22 13:40 15:00 15:50 Temperature 37.0 C Heart Rate 55 L 51 L 53 L Respiratory 18 17 22 Rate Blood Pressure 155/81 H 157/75 H 149/83 H O2 Saturation 100 100 100 Oxygen O2 Source Room air - EKG (time done) 1448 Rate: Rate (enter#) (49) Rhythm: Sinus bradycardia [place]: Normal Intervals: Normal [place] QRS: Normal Ischemia: Non specific changes - Labs Labs: Laboratory Tests 02/08/22 02/08/22 02/08/22 13:58 13:58 13:58 WBC 3.2 L RBC 4.55 L Hgb 14.3 Hct 43.3 MCV 95.2 H MCH 31.4 H MCHC 33.0 RDW 12.2 Plt Count 137 MPV 11.4 Neut # (Auto) 1.7 Lymph # (Auto) 0.9 L [place] # (Auto) 0.3 Eos # (Auto) 0.3 Baso # (Auto) 0.0 Absolute Nucleated RBC 0.00 Nucleated RBC % 0.0 Sodium 142 Potassium 3.6 Chloride 102 Carbon Dioxide 33 H Anion Gap 7.0 BUN 12 Creatinine 1.0 Estimated GFR (MDRD) 87 L Glucose 116 H Calcium 9.4 Total Bilirubin 1.3 H AST 23 ALT 17 Alkaline Phosphatase 51 Troponin I High Sens 32.3 H* Total Protein 6.8 Albumin 3.9 Globulin 2.9 Albumin/Globulin Ratio 1.3 - Rads (name of study) cxr Radiology: Final report received, EMP read contemporaneously, See rad report PD MEDICAL DECISION MAKING - ED course Complexity details: reviewed results, re-evaluated patient, considered differential (No ST elevation [place], no aortic dissection, no PE, no tension pneumothorax, no aortic aneurysm), d/w patient ED course: Patient with what appears to be increasing anxiety over the past several weeks. This does not appear to be related to a cardiac cause or a primary lung issue. No hypoxia. No respiratory distress. Chest x-ray does not have any acute abnormalities. Symptoms fully resolved with a dose of Ativan. Patient is following up with his doctor on Thursday and will discuss medications then. Patient counseled regarding signs and symptoms for which I believe and urgent re-evaluation would be necessary. Patient with good understanding of and agreement to plan and is comfortable going home at this time This document was made in part using voice recognition software. While efforts are made to proofread this document, sound alike and grammatical errors may occur. Departure - Departure Disposition: Home, Self Care Clinical Impression: Anxiety Condition: Good Instructions: ED Panic Attack Follow-Up: Your,doctor on Thursday as scheduled [Other] Comments: Please follow-up with your doctor for further care. Follow-up as scheduled on Thursday to discuss antianxiety medications with your doctor. Return if you worsen. Your testing does not show any acute abnormalities today. Discharge Date/Time: 02/08/22 15:52
[2022-02-08 15:52] VITALS: BP 149/83
== END 2022-02-08 15:52 | disposition home or self-care (01) ==
LOC: EDUNIT# → ED 13:32
DX: F41.9 Anxiety disorder, unspecified (principal); J44.9 Chronic obstructive pulmonary disease, unspecified; I25.10 Atherosclerotic heart disease of native coronary artery without angina pectoris; I10 Essential (primary) hypertension; E78.00 Pure hypercholesterolemia, unspecified; E11.9 Type 2 diabetes mellitus without complications
CPT/HCPCS: 36415; 71045; 80053; 84484; 85025; 93005; 99283; 99284; A9270

== ENCOUNTER 2022-02-19 09:22 | Outpatient (CLI) | payer MEDICARE, BC | END 2022-02-19 09:23 | disposition critical access hospital (66) | LOC: EMS 09:22 | DX: R07.89 Other chest pain (principal); R09.89 Other specified symptoms and signs involving the circulatory and respiratory systems | CPT/HCPCS: A0425; A0427 ==

== ENCOUNTER 2022-02-19 09:35 | Emergency (ER) | payer MEDICARE, BC ==
--- NOTE | 2022-02-19 09:49 | ED Physician Documentation ---
PD HPI CHEST PAIN - Stated complaint Stated Complaint: CHEST DISCOMFORT - Chief complaint Chief Complaint: Cardiac - History obtained from History obtained from: Patient - History of Present Illness Timing - onset: How many minutes ago (30) Quality: Pressure Location: Other (GENERALIZED) Radiation: No: Jaw, Neck, Back, Abdominal, Left upper extremity, Right upper extremity, Other Improved by: Other (SPONTANEOUSLY RESOLVED) Worsened by: No: Exertion, Inspiration, Eating, Movement, Palpation, Position, Other Associated symptoms: No: Shortness of air, Diaphoresis, Nausea, Vomiting, Feeling faint / dizzy, General Weakness, Palpitations, Cough, Other Similar symptoms before: No: Diagnosis, No diagnosis, Work up / diagnostics, Treatment, Follow up, Has not had sx before, Other Recently seen: No: Clinic, Emergency Dept, Admitted, Surgery, Transferred, Not recently seen, Other - Treatment prior to arrival Treatment prior to arrival: NO MEDICATIONS PER EMS - Additional information Additional information: 81-year-old male with history of coronary artery disease, COPD, hypertension, hyperlipidemia presents by EMS from home for brief episode of vague, centralized, nonradiating chest "pressure" that began just prior to arrival and lasted for less than a minute. EMS reports that when they arrived the patient's heart rate was in the 30s. Patient states that his heart rate is usually "low" but he does not remember what his actual heart rate is. No medications given in route. On arrival the patient denied any complaints, stated he felt back to baseline. He stated that as soon as he felt the symptoms he was concerned and felt like he would better be safe than sorry and called 911. Review of Systems Ten Systems: 10 systems reviewed and negative Constitutional: denies: Fever, Chills Cardiac: reports: Chest pain / pressure. denies: Palpitations, Pedal edema Respiratory: denies: Dyspnea, Cough, Wheezing : denies: Dysuria, Frequency, Hesitancy Skin: denies: Rash, Lesions Neurologic: denies: Generalized weakness PD PAST MEDICAL HISTORY - Past Medical History Cardiovascular: Hypertension, High cholesterol, Coronary artery disease Respiratory: COPD Endocrine/Autoimmune: Type 2 diabetes GI: None : None HEENT: None Psych: None Musculoskeletal: Osteoarthritis Derm: None - Past Surgical History Past Surgical History: Yes Ortho: Arthroscopic surgery - Present Medications Home Medications: Ambulatory Orders Medication Instructions Recorded Confirmed Albuterol 2.5 mg INH Q6H PRN 05/28/18 09/18/18 Losartan Potassium 50 mg PO BID 12/28/17 04/20/18 Metoprolol Succinate [Toprol Xl] 25 mg PO DAILY 12/28/17 04/20/18 Albuterol Sulfate [Proair Hfa 2 puffs INH Q4H PRN 04/19/18 04/20/18 Inhaler] Atorvastatin Calcium 10 mg PO QPM 04/19/18 04/20/18 Budesonide/Formoterol Fumarate 2 puffs INH BID 04/19/18 04/20/18 [Symbicort 80-4.5 Mcg Inhaler] Ibuprofen 200 mg PO Q6H PRN 04/19/18 04/20/18 Amlodipine Besylate [Norvasc] 2.5 mg PO DAILY #30 tablet 04/20/18 Baclofen 20 mg PO TID 04/20/18 04/20/18 Tiotropium [place] [Spiriva] 1 cap INH DAILY 04/20/18 04/20/18 Albuterol 2.5 mg INH Q4H PRN #30 ml 12/02/20 Albuterol Sulf [Ventolin Hfa 1 - 2 puffs INH Q4HR PRN #1 inhaler 12/02/20 Inhaler] Amox/Clav 875/125 [Augmentin] 1 each PO Q12H #20 tablet 12/02/20 Nebulizer and Compressor 1 each MC Q4HR PRN #1 each 12/02/20 [Compressor Nebulizer System] predniSONE [Deltasone] 10 mg PO ONCE #26 tablet 12/02/20 Albuterol 2.5 mg INH Q4H PRN #30 neb 03/13/21 Amoxicillin 500 mg PO TID #20 cap 03/13/21 dexAMETHasone [Decadron] 4 mg PO DAILY #5 tablet 03/13/21 Azithromycin [Zithromax] 250 mg PO DAILY #6 tablet 04/12/21 predniSONE [Deltasone] 10 mg PO ONCE #26 tablet 04/12/21 - Allergies Allergies/Adverse Reactions: Allergies Allergy/AdvReac Type Severity Reaction Status Date / Time No Known Drug Allergies Allergy Verified 02/19/22 09:47 - Social History Does the pt smoke?: No Smoking Status: Never smoker Does the pt drink ETOH?: No Does the pt have substance abuse?: No - Immunizations Immunizations are current?: No Immunizations: TDAP >10years/unknown - POLST Patient has POLST: Yes POLST Status: Full Code PD ED PE NORMAL - Vitals Vital signs reviewed: Yes - General General: Alert and oriented X 3, No acute distress, Well developed/nourished - HEENT HEENT: Atraumatic, EOMI, Ears normal, Moist mucous membranes - Neck Neck: Supple, no meningeal sign, No bony TTP, No adenopathy - Cardiac Cardiac: No gallop, No rub, Other (BRADYCARDIA, REGULAR RHYTHMA) - Respiratory Respiratory: No respiratory distress, Clear bilaterally - Abdomen Abdomen: Soft, Non tender, Non distended - Back Back: No CVA TTP, No spinal TTP - Derm Derm: Normal color, Warm and dry, No rash - Extremities Extremities: No deformity, No tenderness to palpate, No edema - Neuro Neuro: Alert and oriented X 3, 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, No motor deficit, No sensory deficit, Normal speech - Psych Psych: Normal mood, Normal affect Results - Vitals Vitals: Vital Signs - 24 hr 02/19/22 02/19/22 02/19/22 09:37 10:00 10:30 Temperature 36.1 C L Heart Rate 51 L 59 L 42 L Respiratory 20 12 20 Rate Blood Pressure 175/74 H 156/64 H O2 Saturation 99 99 98 02/19/22 02/19/22 02/19/22 11:00 11:30 12:00 Temperature Heart Rate 43 L 44 L 46 L Respiratory 20 21 20 Rate Blood Pressure 161/58 H 144/74 H O2 Saturation 100 99 98 02/19/22 02/19/22 12:31 13:00 Temperature Heart Rate 64 44 L Respiratory 19 19 Rate Blood Pressure 144/74 H 153/67 H O2 Saturation 93 99 Oxygen O2 Source Room air - EKG (time done) 0940 Rate: Rate (enter#) (48) Rhythm: Sinus bradycardia [place]: Normal QRS: Normal - Labs Labs: Laboratory Tests 02/19/22 02/19/22 02/19/22 09:55 09:55 09:55 WBC 3.1 L RBC 4.49 L Hgb 14.2 Hct 43.8 MCV 97.6 H MCH 31.6 H MCHC 32.4 RDW 12.2 Plt Count 140 MPV 11.3 Neut # (Auto) 1.6 Lymph # (Auto) 0.9 L [place] # (Auto) 0.3 Eos # (Auto) 0.2 Baso # (Auto) 0.1 Absolute Nucleated RBC 0.00 Nucleated RBC % 0.0 Sodium 137 Potassium 3.6 Chloride 100 L Carbon Dioxide 28 Anion Gap 9.0 BUN 12 Creatinine 0.9 Estimated GFR (MDRD) 98 Glucose 102 H Calcium 9.1 Total Bilirubin 0.8 AST 15 ALT 12 Alkaline Phosphatase 51 Troponin I High Sens 20.0 H* Total Protein 6.6 L Albumin 3.6 Globulin 3.0 Albumin/Globulin Ratio 1.2 Lipase 27 02/19/22 12:14 WBC RBC Hgb Hct MCV MCH MCHC RDW Plt Count MPV Neut # (Auto) Lymph # (Auto) [place] # (Auto) Eos # (Auto) Baso # (Auto) Absolute Nucleated RBC Nucleated RBC % Sodium Potassium Chloride Carbon Dioxide Anion Gap BUN Creatinine Estimated GFR (MDRD) Glucose Calcium Total Bilirubin AST ALT Alkaline Phosphatase Troponin I High Sens 21.7 H* Total Protein Albumin Globulin Albumin/Globulin Ratio Lipase PD MEDICAL DECISION MAKING - ED course Complexity details: reviewed old records, reviewed results, re-evaluated patient, considered differential, d/w patient ED course: 81-year-old male with brief episode of generalized chest pressure, resolved prior to arrival. Patient's heart rate was 30 when EMS arrived, he does take metoprolol, endorses that his heart rate is normally "low", however he does not remember his exact baseline heart rate. EKG sinus bradycardia without ischemic findings. Cardiac work-up obtained. Initial troponin is 20, patient has been here previously and has chronically elevated troponins, in fact today is even lower than his previous values. Patient resting comfortably in ED bed, no return of symptoms. Hemodynamically stable. Will obtain 2-hour troponin will reassess. 2-hour troponin is virtually unchanged. Patient denies return of symptom s.Patient was informed of his results, counseled to stop taking metoprolol as it can drop his heart rate and cause return of symptoms. Patient was counseled to follow-up as soon as possible with primary care physician and cardiology. Patient states that he would call this week for an appointment. Discharged home in stable condition. Departure - Departure Disposition: Home, Self Care Clinical Impression: Chest pain Qualifiers: Chest pain type: unspecified Qualified Code(s): R07.9 - Chest pain, unspecified Condition: Good Instructions: ED Chest Pain Atypical Unkn Cause Comments: REDUCE YOUR METOPROLOL DOSE. IF YOUR HEART RATE IS >60 YOU CAN TAKE ONE HALF OF A TABLET. FOLLOW UP LIDIA WITH YOUR STEREOTYPE FINISHER OR YOUR PCP - PREFERABLY WITHIN THE WEEK. RETURN IMMEDIATELY FOR NEW OR WORSENING SHORTNESS OF BREATH, CHEST PAIN Discharge Date/Time: 02/19/22 13:43
[2022-02-19 10:05] LABS: BASOPHILS # (AUTO) 0.1 10^3/uL (0.0-0.1); BASOPHILS % (AUTO) 1.6 %; EOSINOPHILS # (AUTO) 0.2 10^3/uL (0.0-0.7); EOSINOPHILS % (AUTO) 7.5 %; HCT - HEMATOCRIT 43.8 % (42.0-52.0); HGB - HEMOGLOBIN 14.2 g/dL (14.0-18.0); LYMPHOCYTES # (AUTO) 0.9 10^3/uL (1.5-3.5); LYMPHOCYTES % (AUTO) 28.2 %; MEAN CORPUSCULAR HEMOGLOBIN 31.6 pg (27.0-31.0); MEAN CORPUSCULAR HGB CONC 32.4 g/dL (32.0-36.0); MEAN CORPUSCULAR VOLUME 97.6 fL (80.0-94.0); MEAN PLATELET VOLUME 11.3 fL (7.4-11.4); MONOCYTES # (AUTO) 0.3 10^3/uL (0.0-1.0); NEUTROPHILS # (AUTO) 1.6 10^3/uL (1.5-6.6); NEUTROPHILS % (AUTO) 51.7 %; PLT - PLATELET COUNT 140 10^3/uL (130-450); RED BLOOD COUNT 4.49 10^6/uL (4.70-6.10); RED CELL DISTRIBUTION WIDTH 12.2 % (12.0-15.0); WHITE BLOOD COUNT 3.1 x10^3/uL (4.8-10.8)
--- NOTE | 2022-02-19 10:09 | XRAY Report ---
PROCEDURE: Chest 1 View X-Ray INDICATIONS: Chest pain TECHNIQUE: One view of the chest was acquired. COMPARISON: 02/08/2022 and 04/12/2021 FINDINGS: Surgical changes and devices: None. Lungs and pleura: No pleural effusions or pneumothorax. Lung volumes are slightly diminished with mi nimal streaky bibasilar opacities favored to represent atelectasis. No focal consolidation. Lungs are otherwise clear. Mediastinum: Mediastinal contours appear normal. Heart size is normal. Bones and chest wall: No suspicious bony lesions. Overlying soft tissues appear unremarkable. IMPRESSION: Slightly diminished lung volumes with minimal streaky bibasilar opacities which are favored to repres ent atelectasis. Otherwise, no acute cardiopulmonary abnormalities. Reviewed by: Seven Samuels MD on 02/19/2022 10:08 AM PDT Approved by: Seven Samuels MD on 02/19/2022 10:08 AM PDT Station ID: [id number]
[2022-02-19 10:47] LABS: ALBUMIN 3.6 g/dL (3.2-5.5); ALBUMIN/GLOBULIN RATIO 1.2 (1.0-2.2); BILIRUBIN,TOTAL 0.8 mg/dL (0.2-1.0); CALCIUM 9.1 mg/dL (8.5-10.3); CREATININE 0.9 mg/dL (0.6-1.2); POTASSIUM 3.6 mmol/L (3.5-5.0); TOTAL PROTEIN 6.6 g/dL (6.7-8.2)
[2022-02-19 13:05] VITALS: BP 153/67
== END 2022-02-19 13:43 | disposition home or self-care (01) ==
LOC: EDUNIT# → ED 09:35
DX: R07.89 Other chest pain (principal); R00.1 Bradycardia, unspecified; I25.10 Atherosclerotic heart disease of native coronary artery without angina pectoris; I10 Essential (primary) hypertension; E11.9 Type 2 diabetes mellitus without complications; J44.9 Chronic obstructive pulmonary disease, unspecified
CPT/HCPCS: 36415; 80053; 83690; 84484; 85025; 93005; 99282; 99284

== ENCOUNTER 2022-02-23 16:30 | Outpatient (CLI) | payer MEDICARE, BC | END 2022-02-23 16:31 | disposition critical access hospital (66) | LOC: EMS 16:30 | DX: R07.89 Other chest pain (principal) | CPT/HCPCS: A0425; A0427 ==

== ENCOUNTER 2022-02-23 16:43 | Emergency (ER) | payer MEDICARE, BC ==
[2022-02-23 17:15] LABS: BASOPHILS # (AUTO) 0.1 10^3/uL (0.0-0.1); BASOPHILS % (AUTO) 1.3 %; EOSINOPHILS # (AUTO) 0.3 10^3/uL (0.0-0.7); EOSINOPHILS % (AUTO) 7.9 %; HGB - HEMOGLOBIN 13.3 g/dL (14.0-18.0); MEAN CORPUSCULAR HEMOGLOBIN 31.7 pg (27.0-31.0); MEAN CORPUSCULAR HGB CONC 33.3 g/dL (32.0-36.0); MEAN CORPUSCULAR VOLUME 95.5 fL (80.0-94.0); MEAN PLATELET VOLUME 10.6 fL (7.4-11.4); MONOCYTES # (AUTO) 0.4 10^3/uL (0.0-1.0); MONOCYTES % (AUTO) 11.4 %; NEUTROPHILS % (AUTO) 52.1 %; PLT - PLATELET COUNT 137 10^3/uL (130-450); RED BLOOD COUNT 4.19 10^6/uL (4.70-6.10); RED CELL DISTRIBUTION WIDTH 12.3 % (12.0-15.0); WHITE BLOOD COUNT 3.8 x10^3/uL (4.8-10.8)
--- NOTE | 2022-02-23 17:19 | ED Physician Documentation ---
PD HPI CHEST PAIN - Stated complaint Stated Complaint: CHEST PX - Chief complaint Chief Complaint: Cardiac - History obtained from History obtained from: Patient - History of Present Illness Timing - onset: Today Timing - onset during: Rest Timing - duration: Hours (1) Timing - details: Abrupt onset Pain level max: 1 Pain level now: 0 Quality: Sharp. No: Pressure, Tightness, Aching, Tearing, Dull, Stabbing, Throbbing, Indigestion Location: Left chest Radiation: No: Jaw, Neck, Back, Abdominal, Left upper extremity, Right upper extremity Improved by: Nothing Worsened by: No: Exertion, Inspiration, Eating, Movement, Palpation, Position Associated symptoms: No: Shortness of air, Diaphoresis, Nausea, Vomiting, Feeling faint / dizzy, General Weakness, Palpitations, Cough - Additional information Additional information: 81-year-old male presents to the emergency department with chest pain today. It lasted for 1 to 2 seconds. Was on the left side of the chest. Occurred when he was at home. Occurred about an hour prior to arrival. Nonradiating. Described as sharp. Has had similar symptoms several times previously. Denies any cardiac history. Does have a COPD history and hyperlipidemia. Review of Systems Constitutional: denies: Fever, Chills Respiratory: denies: Cough GI: denies: Nausea, Vomiting, Diarrhea Skin: denies: Rash Musculoskeletal: denies: Neck pain, Back pain Neurologic: denies: Focal weakness, Numbness, Headache PD PAST MEDICAL HISTORY - Past Medical History Cardiovascular: Hypertension, High cholesterol, Coronary artery disease Respiratory: COPD Endocrine/Autoimmune: Type 2 diabetes GI: None : None HEENT: None Psych: None Musculoskeletal: Osteoarthritis Derm: None - Past Surgical History Past Surgical History: Yes Ortho: Arthroscopic surgery - Present Medications Home Medications: Ambulatory Orders Medication Instructions Recorded Confirmed Albuterol 2.5 mg INH Q6H PRN 12/28/17 04/20/18 Losartan Potassium 50 mg PO BID 12/28/17 04/20/18 Metoprolol Succinate [Toprol Xl] 25 mg PO DAILY 12/28/17 04/20/18 Albuterol Sulfate [Proair Hfa 2 puffs INH Q4H PRN 04/19/18 04/20/18 Inhaler] Atorvastatin Calcium 10 mg PO QPM 04/19/18 04/20/18 Budesonide/Formoterol Fumarate 2 puffs INH BID 04/19/18 04/20/18 [Symbicort 80-4.5 Mcg Inhaler] Ibuprofen 200 mg PO Q6H PRN 04/19/18 04/20/18 Amlodipine Besylate [Norvasc] 2.5 mg PO DAILY #30 tablet 04/20/18 Baclofen 20 mg PO TID 04/20/18 04/20/18 Tiotropium [place] [Spiriva] 1 cap INH DAILY 04/20/18 04/20/18 Albuterol 2.5 mg INH Q4H PRN #30 ml 12/02/20 Albuterol Sulf [Ventolin Hfa 1 - 2 puffs INH Q4HR PRN #1 inhaler 12/02/20 Inhaler] Amox/Clav 875/125 [Augmentin] 1 each PO Q12H #20 tablet 12/02/20 Nebulizer and Compressor 1 each MC Q4HR PRN #1 each 12/02/20 [Compressor Nebulizer System] predniSONE [Deltasone] 10 mg PO ONCE #26 tablet 12/02/20 Albuterol 2.5 mg INH Q4H PRN #30 neb 03/13/21 Amoxicillin 500 mg PO TID #20 cap 03/13/21 dexAMETHasone [Decadron] 4 mg PO DAILY #5 tablet 03/13/21 Azithromycin [Zithromax] 250 mg PO DAILY #6 tablet 04/12/21 predniSONE [Deltasone] 10 mg PO ONCE #26 tablet 04/12/21 - Allergies Allergies/Adverse Reactions: Allergies Allergy/AdvReac Type Severity Reaction Status Date / Time No Known Drug Allergies Allergy Verified 02/19/22 09:47 - Social History Does the pt smoke?: No Smoking Status: Never smoker Does the pt drink ETOH?: No Does the pt have substance abuse?: No - Immunizations Immunizations are current?: No Immunizations: TDAP >10years/unknown - POLST Patient has POLST: Yes POLST Status: Full Code PD ED PE NORMAL - Vitals Vital signs reviewed: Yes - General General: Alert and oriented X 3, No acute distress - HEENT HEENT: PERRL, Moist mucous membranes - Neck Neck: Supple, no meningeal sign - Cardiac Cardiac: RRR, Strong equal pulses - Respiratory Respiratory: No respiratory distress, Clear bilaterally - Abdomen Abdomen: Soft, Non tender, Non distended - Derm Derm: Warm and dry - Extremities Extremities: No edema, No calf tenderness / cord - Neuro Neuro: Alert and oriented X 3 - Psych Psych: Normal mood, Normal affect Results - Vitals Vitals: Vital Signs - 24 hr 02/23/22 02/23/22 17:03 18:19 Temperature 36.6 C Heart Rate 58 L 56 L Respiratory 22 19 Rate Blood Pressure 149/129 H 158/65 H O2 Saturation 100 100 Oxygen O2 Source Room air - EKG (time done) 1719 Rate: Rate (enter#) (56) Rhythm: NSR [place]: Normal Intervals: Prolonged [place], Wide QRS Ischemia: Normal ST segments Compare to prior EKG: Unchanged from prior EKG - Labs Labs: Laboratory Tests 02/23/22 02/23/22 02/23/22 17:07 17:07 17:07 WBC 3.8 L RBC 4.19 L Hgb 13.3 L Hct 40.0 L MCV 95.5 H MCH 31.7 H MCHC 33.3 RDW 12.3 Plt Count 137 MPV 10.6 Neut # (Auto) 2.0 Lymph # (Auto) 1.0 L [place] # (Auto) 0.4 Eos # (Auto) 0.3 Baso # (Auto) 0.1 Absolute Nucleated RBC 0.00 Nucleated RBC % 0.0 Sodium 142 Potassium 3.9 Chloride 103 Carbon Dioxide 31 Anion Gap 8.0 BUN 15 Creatinine 0.8 Estimated GFR (MDRD) 113 Glucose 101 H Calcium 9.4 Total Bilirubin 0.8 AST 16 ALT 10 Alkaline Phosphatase 47 Troponin I High Sens 26.6 H* Total Protein 6.6 L Albumin 3.5 Globulin 3.1 Albumin/Globulin Ratio 1.1 Lipase 71 H - Rads (name of study) Chest x-ray Radiology: Final report received (No acute abnormality) PD MEDICAL DECISION MAKING - ED course Complexity details: reviewed results, re-evaluated patient, considered differential (No ST elevation [place], no aortic dissection, no PE, no tension pneumothorax, no aortic aneurysm), d/w patient ED course: Patient with 1 to 2 seconds of chest pain earlier today. Currently asymptomatic. Troponin is consistent with his previous ranges. Symptoms are not consistent with acute coronary syndrome. No acute findings on laboratory testing, chest x-ray or EKG. Patient is requesting to go home at this time. Does not want to stay for second troponin. Patient counseled regarding signs and symptoms for which I believe and urgent re-evaluation would be necessary. Patient with good understanding of and agreement to plan and is comfortable going home at this time This document was made in part using voice recognition software. While efforts are made to proofread this document, sound alike and grammatical errors may occur. Departure - Departure Disposition: 01 Home, Self Care Clinical Impression: Palpitation Chest pain Qualifiers: Chest pain type: unspecified Qualified Code(s): R07.9 - Chest pain, unspecified Condition: Good Instructions: ED Chest Pain Atypical Unkn Cause Follow-Up: Alyssa Garay MD [Primary Care Provider] - Within 3 Days Comments: Please follow-up with your doctor for further care. Return if you worsen. Neuro testing does not show any acute abnormalities today. Discharge Date/Time: 02/23/22 18:19
--- NOTE | 2022-02-23 17:20 | XRAY Report ---
PROCEDURE: Chest 1 View X-Ray INDICATIONS: Chest Pain TECHNIQUE: One view of the chest was acquired. COMPARISON: 02/19/2022, 02/08/2022, 02/04/2022 FINDINGS: Surgical changes and devices: None. Lungs and pleura: No pleural effusions or pneumothorax. Lungs are clear. Mediastinum: The aorta is prominent and tortuous. The cardiac contours are within normal limits. Bones and chest wall: No suspicious bony lesions. Age-appropriate degenerative changes are seen. O verlying soft tissues appear unremarkable. IMPRESSION: Chest plain film study within normal limits. Reviewed by: Leobardo Oliver MD on 02/23/2022 4:19 PM [facility] Approved by: Leobardo Oliver MD on 02/23/2022 4:19 PM KAR[facility] Station ID: [id number]
[2022-02-23 17:27] LABS: ALBUMIN 3.5 g/dL (3.2-5.5); ALBUMIN/GLOBULIN RATIO 1.1 (1.0-2.2); BILIRUBIN,TOTAL 0.8 mg/dL (0.2-1.0); CALCIUM 9.4 mg/dL (8.5-10.3); CREATININE 0.8 mg/dL (0.6-1.2); POTASSIUM 3.9 mmol/L (3.5-5.0); TOTAL PROTEIN 6.6 g/dL (6.7-8.2)
[2022-02-23 18:19] VITALS: BP 158/65
== END 2022-02-23 18:19 | disposition home or self-care (01) ==
LOC: ED 16:43
DX: R07.9 Chest pain, unspecified (principal); I10 Essential (primary) hypertension
CPT/HCPCS: 36415; 80053; 83690; 84484; 85025; 93005; 99283; 99284

== ENCOUNTER 2022-02-23 18:33 | Emergency (ER) | payer MEDICARE, BC ==
[2022-02-23] MEDS ORDERED: LORazepam 0.5 MG TABLET PO STA (18:43)
[2022-02-23] MEDS ORDERED: IPRATROPIUM/ALBUTEROL 3 ML NEB INH STA (18:55)
[2022-02-23 19:37] VITALS: BP 140/64
--- NOTE | 2022-02-23 19:38 | ED Physician Documentation ---
History of Present Illness - Stated complaint Stated Complaint: LABORED BREATHING - Chief complaint Chief Complaint: Resp - History obtained from History obtained from: Patient - History of Present Illness Timing: Today Pain level max: 0 Pain level now: 0 - Additonal information Additional information: Patient was seen here earlier today for 1 to 2 seconds of chest pain. He states that tonight he was in the car waiting for his at the grocery store when he felt like he had difficulty breathing. He has a history of COPD and has not used his inhalers today. He states that he felt better upon returning to the hospital. No chest pain. No cough. No abdominal pain. No wheezing. No fevers. No chills. Review of Systems Constitutional: denies: Fever, Chills Respiratory: reports: Dyspnea. denies: Cough GI: denies: Vomiting, Diarrhea Skin: denies: Rash PD PAST MEDICAL HISTORY - Past Medical History Cardiovascular: Hypertension, High cholesterol, Coronary artery disease Respiratory: COPD Endocrine/Autoimmune: Type 2 diabetes GI: None : None HEENT: None Psych: None Musculoskeletal: Osteoarthritis Derm: None - Past Surgical History Past Surgical History: Yes Ortho: Arthroscopic surgery - Present Medications Home Medications: Ambulatory Orders Medication Instructions Recorded Confirmed Albuterol 2.5 mg INH Q6H PRN 12/28/17 04/20/18 Losartan Potassium 50 mg PO BID 12/28/17 04/20/18 Metoprolol Succinate [Toprol Xl] 25 mg PO DAILY 12/28/17 04/20/18 Albuterol Sulfate [Proair Hfa 2 puffs INH Q4H PRN 04/19/18 04/20/18 Inhaler] Atorvastatin Calcium 10 mg PO QPM 04/19/18 04/20/18 Budesonide/Formoterol Fumarate 2 puffs INH BID 04/19/18 04/20/18 [Symbicort 80-4.5 Mcg Inhaler] Ibuprofen 200 mg PO Q6H PRN 04/19/18 04/20/18 Amlodipine Besylate [Norvasc] 2.5 mg PO DAILY #30 tablet 04/20/18 Baclofen 20 mg PO TID 04/20/18 04/20/18 Tiotropium Luther [Spiriva] 1 cap INH DAILY 04/20/18 04/20/18 Albuterol 2.5 mg INH Q4H PRN #30 ml 12/02/20 Albuterol Sulf [Ventolin Hfa 1 - 2 puffs INH Q4HR PRN #1 inhaler 12/02/20 Inhaler] Amox/Clav 875/125 [Augmentin] 1 each PO Q12H #20 tablet 12/02/20 Nebulizer and Compressor 1 each MC Q4HR PRN #1 each 12/02/20 [Compressor Nebulizer System] predniSONE [Deltasone] 10 mg PO ONCE #26 tablet 12/02/20 Albuterol 2.5 mg INH Q4H PRN #30 neb 03/13/21 Amoxicillin 500 mg PO TID #20 cap 03/13/21 dexAMETHasone [Decadron] 4 mg PO DAILY #5 tablet 03/13/21 Azithromycin [Zithromax] 250 mg PO DAILY #6 tablet 04/12/21 predniSONE [Deltasone] 10 mg PO ONCE #26 tablet 04/12/21 - Allergies Allergies/Adverse Reactions: Allergies Allergy/AdvReac Type Severity Reaction Status Date / Time No Known Drug Allergies Allergy Verified 02/19/22 09:47 - Social History Does the pt smoke?: No Smoking Status: Never smoker Does the pt drink ETOH?: No Does the pt have substance abuse?: No - Immunizations Immunizations are current?: No Immunizations: TDAP >10years/unknown - POLST Patient has POLST: Yes POLST Status: Full Code PD ED PE NORMAL - Vitals Vital signs reviewed: Yes - General General: Alert and oriented X 3, Other (Patient appears very anxious) - HEENT HEENT: PERRL, Moist mucous membranes - Neck Neck: Supple, no meningeal sign - Cardiac Cardiac: RRR, Strong equal pulses - Respiratory Respiratory: No respiratory distress, Clear bilaterally - Abdomen Abdomen: Soft, Non tender, Non distended - Derm Derm: Warm and dry - Extremities Extremities: No edema, No calf tenderness / cord - Neuro Neuro: Alert and oriented X 3 - Psych Psych: Normal mood, Normal affect Results - Vitals Vitals: Vital Signs - 24 hr 02/23/22 02/23/22 02/23/22 18:37 19:09 19:12 Temperature 36.6 C 36.6 C Heart Rate 57 L 60 58 L Respiratory 18 12 20 Rate Blood Pressure 159/75 H 138/77 H O2 Saturation 99 100 02/23/22 19:35 Temperature Heart Rate 52 L Respiratory 22 Rate Blood Pressure 140/64 H O2 Saturation 100 Oxygen O2 Source Room air - EKG (time done) 4247 Rate: Rate (enter#) (57) Rhythm: NSR [place]: Normal Intervals: Prolonged RI, Wide QRS Ischemia: Normal ST segments Compare to prior EKG: Unchanged from prior EKG PD MEDICAL DECISION MAKING - ED course Complexity details: reviewed results, re-evaluated patient, considered differential, d/w patient ED course: Patient was given a dose of Ativan as well as a DuoNeb treatment. Symptoms fully resolved. Had normal blood work just a few hours ago. No acute findings on EKG. Patient request to go home at this time. No evidence of infection. Patient counseled regarding signs and symptoms for which I believe and urgent re-evaluation would be necessary. Patient with good understanding of and agreement to plan and is comfortable going home at this time This document was made in part using voice recognition software. While efforts are made to proofread this document, sound alike and grammatical errors may occur. Normal x-ray a few hours ago as well Departure - Departure Disposition: 01 Home, Self Care Clinical Impression: Dyspnea Qualifiers: Dyspnea type: unspecified Qualified Code(s): R06.00 - Dyspnea, unspecified COPD (chronic obstructive pulmonary disease) Qualifiers: COPD type: unspecified COPD Qualified Code(s): J44.9 - Chronic obstructive pulmonary disease, unspecified Condition: Good Instructions: COPD Dc Follow-Up: Alyssa Garay MD [Primary Care Provider] - Within 1 week Comments: Please follow-up with your doctor for further care. Return if you worsen. Continue your medications at home. You can use a spacer at home as well. Discharge Date/Time: 02/23/22 19:45
== END 2022-02-23 19:45 | disposition home or self-care (01) ==
LOC: ED 18:33
DX: R06.00 Dyspnea, unspecified (principal); R07.9 Chest pain, unspecified; J44.9 Chronic obstructive pulmonary disease, unspecified; I10 Essential (primary) hypertension; E11.9 Type 2 diabetes mellitus without complications
CPT/HCPCS: 36415; 71045; 80053; 83690; 84484; 85025; 93005; 94640; 94664; 99283; 99284; A9270

== ENCOUNTER 2022-05-08 11:04 | Outpatient (CLI) | payer MEDICARE, BC ==
--- NOTE | 2022-05-08 16:05 | CT Report ---
PROCEDURE: HEAD WO INDICATIONS: MEMORY LOSS TECHNIQUE: Noncontrast 4.5 mm thick angled axial sections acquired from the foramen magnum to the vertex. For r adiation dose reduction, the following was used: automated exposure control, adjustment of mA and/or kV according to patient size. COMPARISON: None. FINDINGS: Image quality: Excellent. The ventricular system and cortical sulci demonstrate atrophy, consistent for patient's stated age. There are areas of hypodensity in the periventricular and subcortical white matter. There is no acut e intra or extra-axial fluid collection. No acute hemorrhage, mass lesion or midline shift. Brainst em is unremarkable. Globes are symmetrical. Sinuses are aerated. Osseous structures are intact. IMPRESSION: 1. No acute intracranial process. 2. Moderate atrophy and chronic microvascular ischemic changes. Reviewed by: Ana Rosa Beckford MD on 05/08/2022 4:04 PM PDT Approved by: Ana Rosa Beckford MD on 05/08/2022 4:04 PM PDT Station ID: [id number]
== END 2022-05-08 11:05 | disposition home or self-care (01) ==
LOC: DI 11:04
PROVIDERS: ATTEND Internal Medicine
DX: R41.3 Other amnesia (principal); G31.9 Degenerative disease of nervous system, unspecified; I67.2 Cerebral atherosclerosis